=== PATIENT | male | born 1975 | race African-American/Black ===

== ENCOUNTER 2019-08-24 15:36 | Emergency (ER) | payer OTHER ==
[~2019-08-24] VITALS: Ht 180.3 cm; Wt 106.6 kg
[2019-08-24 15:51] VITALS: BP 218/140
[2019-08-24] MEDS ORDERED: IBUPROFEN 800 MG TAB PO ONE (16:00)
[2019-08-24] MEDS ORDERED: SILVER SULFADIAZINE 1 % TOPICAL CREAM 50GM TOP ONE (16:00)
[2019-08-24] MEDS ORDERED: TETANUS-DIPTH-ACEL PERTUSSIS 0.5ML SYRG IM ONE (16:00)
[2019-08-24] MEDS ORDERED: cloNIDine HCL 0.1 MG TAB PO ONE (16:00)
== END 2019-08-24 17:04 | disposition home or self-care (01) ==
LOC: ER 15:36
DX: T22.012A Burn of unspecified degree of left forearm, initial encounter (principal); T23.072A Burn of unspecified degree of left wrist, initial encounter; I10 Essential (primary) hypertension; X11.8XXA Contact with other hot tap-water, initial encounter; Y93.89 Activity, other specified; Y92.89 Other specified places as the place of occurrence of the external cause; Y99.8 Other external cause status
CPT/HCPCS: 16020; 90471; 90715

== ENCOUNTER 2019-09-20 11:21 | Emergency (ER) | payer OTHER ==
[~2019-09-20] VITALS: Ht 177.8 cm; Wt 102.5 kg
[2019-09-20 11:33] VITALS: BP 195/136
[2019-09-20] MEDS ORDERED: cloNIDine HCL 0.1 MG TAB PO ONE (11:45)
== END 2019-09-20 13:44 | disposition home or self-care (01) ==
LOC: ER 11:21
DX: S62.394A Other fracture of fourth metacarpal bone, right hand, initial encounter for closed fracture (principal); S62.396A Other fracture of fifth metacarpal bone, right hand, initial encounter for closed fracture; I10 Essential (primary) hypertension; W18.39XA Other fall on same level, initial encounter; Y93.89 Activity, other specified; Y92.89 Other specified places as the place of occurrence of the external cause; Y99.8 Other external cause status
CPT/HCPCS: 29125; 73130

== ENCOUNTER 2023-06-14 16:54 | Inpatient (IN) | payer OTHER ==
[~2023-06-14] VITALS: Ht 177.8 cm; Wt 95.7 kg
[2023-06-14] MEDS ORDERED: cloNIDine HCL 0.1 MG TAB PO ONE (18:15)
[2023-06-14] MEDS ORDERED: ASPirin 325 MG TAB PO ONE (18:30)
[2023-06-14 18:31] LABS: Basophils # (auto) 0 10 ^3/uL (0-0.2); Basophils % (auto) 0.7 % (0.0-2.0); Eosinophils # (auto) 0.1 10 ^3/uL (0-0.8); Eosinophils % (auto) 2.8 % (0.0-7.0); Hematocrit 43.9 % (41.0-53.0); Hemoglobin 14.6 g/dL (13.5-17.5); Lymphocytes # (auto) 1.6 10 ^3/uL (0.4-5.4); Lymphocytes % (auto) 34.7 % (10.0-50.0); Mean Corpuscular Hemoglobin 27.9 pg (28.0-32.0); Mean Corpuscular Hgb Conc. 33.3 g/dL (32.0-36.0); Mean Corpuscular Volume 83.8 fL (80.0-100.0); Monocytes # (auto) 0.5 10 ^3/uL (0-1.3); Monocytes % (auto) 10.6 % (0.0-12.0); Neutrophils # (auto) 2.4 10 ^3/uL (1.6-8.6); Neutrophils % (auto) 51.2 % (37.0-80.0); Nucleated Red Blood Cells % 0.3 %; Red Blood Cells 5.24 10^6/uL (4.5-5.90); Red Cell Distribution Width 16.7 % (11.8-14.3); White Blood Cell 4.7 10^3/uL (4.4-10.8)
[2023-06-14 19:00] LABS: Alanine Aminotransferase 104 U/L (7-40); Albumin 4.1 g/dL (3.2-4.8); Alkaline Phosphatase 54 U/L (46-116); Anion Gap 5 (5-15); Aspartate Aminotransferase 21 U/L (13-40); BUN/Creatinine Ratio 11.7 (10.0-20.0); Bilirubin, Total 0.7 mg/dL (0.2-1.0); Blood Urea Nitrogen 24 mg/dL (9-23); Calcium 9.2 mg/dL (8.7-10.4); Carbon Dioxide 29 mmol/L (20-30); Chloride 107 mmol/L (98-107); Glucose 103 mg/dL (74-106); Sodium 141 mmol/L (136-145); Total Protein 6.1 g/dL (5.7-8.2)
[2023-06-14 19:50] VITALS: PULSE 106; RESP 36; O2SAT 93
[2023-06-14 20:40] LABS: Urine Bacteria FEW /hpf (None Seen); Urine Blood Negative /uL (Negative); Urine Clarity Clear (Clear); Urine Color Yellow (Yellow); Urine Hyaline Cast FEW /lpf (0 - 2); Urine Mucus FEW (None Seen); Urine Protein, UAD TRACE (Negative); Urine Specific Gravity 1.022 (1.001-1.035); Urine Urobilinogen Normal (Negative); Urine WBC <1 /hpf (0 - 3); Urine pH 5.5 (5.0-8.0)
[2023-06-14] MEDS ORDERED: MORPHINE SULFATE INJ 2 MG/ml SYRG IV PRN (22:00)
[2023-06-14] MEDS ORDERED: FUROSEMIDE 100 MG/10ML VIAL IV ONE (22:00)
[2023-06-14] MEDS ORDERED: NITROGLYCERIN 0.4 MG SL TAB SL PRN (22:00)
[2023-06-14] MEDS ORDERED: ATORVASTATIN 20 MG TAB PO ONE (22:15)
[2023-06-14 22:35] LABS: Amphetamine Screen, Urine Neg (NEGATIVE); Barbiturate Scree,Urine Neg (NEGATIVE); Benzodiazephine Screen, Urine Neg (NEGATIVE); Cannabinoid Screen, Urine Neg (NEGATIVE); Cocaine Screen, Urine Neg (NEGATIVE); Opiate Scree,Urine Neg (NEGATIVE); Phencyclidine Screen, Urine Neg (NEGATIVE)
[2023-06-15] VITALS (8 sets, daily range): BP systolic 138–155; BP diastolic 103–117; PULSE 78–103; RESP 14–20; TEMP 97.5–98.3; O2SAT 92–98
[2023-06-15] MEDS ORDERED: DEXT1SYP9 GT (04:16)
[2023-06-15] MEDS ORDERED: FUROSEMIDE 20 MG/2 ML VIAL IV SCH (06:00)
[2023-06-15] MEDS ORDERED: cloNIDine HCL 0.1 MG TAB PO ONE (06:30)
[2023-06-15 06:41] LABS: INR 1.12 (0.9-1.15); Partial Thromboplastin Time 28.7 SEC (24.5-34.5); Prothrombin Time 11.7 sec (9.3-11.8)
[2023-06-15 06:44] LABS: Alanine Aminotransferase 93 U/L (7-40); Albumin 3.9 g/dL (3.2-4.8); Alkaline Phosphatase 46 U/L (46-116); Anion Gap 3 (5-15); Aspartate Aminotransferase 21 U/L (13-40); BUN/Creatinine Ratio 11.4 (10.0-20.0); Blood Urea Nitrogen 23 mg/dL (9-23); Calcium 9.2 mg/dL (8.7-10.4); Carbon Dioxide 32 mmol/L (20-30); Chloride 106 mmol/L (98-107); Glucose 98 mg/dL (74-106); Potassium 3.8 mmol/L (3.5-5.1); Sodium 141 mmol/L (136-145)
[2023-06-15 06:45] LABS: Bilirubin, Total 1.2 mg/dL (0.2-1.0); Total Protein 5.8 g/dL (5.7-8.2)
[2023-06-15 06:50] LABS: Basophils # (auto) 0 10 ^3/uL (0-0.2); Basophils % (auto) 0.8 % (0.0-2.0); Eosinophils # (auto) 0.2 10 ^3/uL (0-0.8); Eosinophils % (auto) 3.7 % (0.0-7.0); Hematocrit 43.4 % (41.0-53.0); Hemoglobin 14.4 g/dL (13.5-17.5); Lymphocytes # (auto) 1.4 10 ^3/uL (0.4-5.4); Lymphocytes % (auto) 33.1 % (10.0-50.0); Mean Corpuscular Hemoglobin 27.7 pg (28.0-32.0); Mean Corpuscular Hgb Conc. 33.2 g/dL (32.0-36.0); Mean Corpuscular Volume 83.6 fL (80.0-100.0); Monocytes # (auto) 0.5 10 ^3/uL (0-1.3); Monocytes % (auto) 11.2 % (0.0-12.0); Neutrophils # (auto) 2.1 10 ^3/uL (1.6-8.6); Neutrophils % (auto) 51.2 % (37.0-80.0); Nucleated Red Blood Cells % 0.1 %; Red Blood Cells 5.19 10^6/uL (4.5-5.90); Red Cell Distribution Width 16.3 % (11.8-14.3); White Blood Cell 4.2 10^3/uL (4.4-10.8)
[2023-06-15 07:22] LABS: Triglycerides 100 mg/dL (< 150)
[2023-06-15 07:23] LABS: LDL Cholesterol 86 mg/dL (< 100)
[2023-06-15 07:24] LABS: Cholesterol 129 mg/dL (< 200); HDL Cholesterol 33 mg/dL (40-59)
[2023-06-15] MEDS: ASPirin-EC 81 mg tab PO SCH (09:12)
[2023-06-15] MEDS ORDERED: amLODIPine BESYLATE 5 MG TAB PO SCH (10:00)
[2023-06-15] MEDS ORDERED: METOPROLOL TARTRATE 50 MG TAB PO ONE (14:00)
[2023-06-15] MEDS: FUROSEMIDE 40 MG/4 ML VIAL IV SCH ×2 (14:11→17:29)
[2023-06-15] MEDS ORDERED: ISOSORBIDE MONONITRATE ER 60 MG TAB PO ONE (14:15)
[2023-06-15] MEDS: ATORVASTATIN 20 MG TAB PO SCH (21:55)
[2023-06-15] MEDS: hydrALAZINE HCL 25 MG TAB PO SCH (21:55)
[2023-06-15] MEDS: METOPROLOL TARTRATE 50 MG TAB PO SCH (21:57)
[2023-06-15] MEDS: EMPAGLIFLOZIN 10 MG TAB PO SCH (22:02)
[2023-06-16] VITALS (7 sets, daily range): BP systolic 110–151; BP diastolic 75–108; PULSE 82–95; RESP 14–18; TEMP 97.8–99.1; O2SAT 94–97
[2023-06-16] MEDS: EMPAGLIFLOZIN 10 MG TAB PO SCH (06:21)
[2023-06-16] MEDS: FUROSEMIDE 40 MG/4 ML VIAL IV SCH ×2 (06:24→17:56)
[2023-06-16 08:46] LABS: Basophils # (auto) 0 10 ^3/uL (0-0.2); Basophils % (auto) 0.8 % (0.0-2.0); Eosinophils # (auto) 0.2 10 ^3/uL (0-0.8); Eosinophils % (auto) 5.1 % (0.0-7.0); Hematocrit 49.2 % (41.0-53.0); Hemoglobin 16.6 g/dL (13.5-17.5); Lymphocytes % (auto) 21.9 % (10.0-50.0); Mean Corpuscular Hemoglobin 28.2 pg (28.0-32.0); Mean Corpuscular Hgb Conc. 33.6 g/dL (32.0-36.0); Mean Corpuscular Volume 83.8 fL (80.0-100.0); Monocytes # (auto) 0.4 10 ^3/uL (0-1.3); Monocytes % (auto) 9.6 % (0.0-12.0); Neutrophils # (auto) 2.9 10 ^3/uL (1.6-8.6); Neutrophils % (auto) 62.6 % (37.0-80.0); Nucleated Red Blood Cells % 0.1 %; Red Blood Cells 5.87 10^6/uL (4.5-5.90); Red Cell Distribution Width 16.7 % (11.8-14.3); White Blood Cell 4.6 10^3/uL (4.4-10.8)
[2023-06-16 08:53] LABS: Carbon Dioxide 36 mmol/L (20-30)
[2023-06-16 08:54] LABS: Calcium 9.7 mg/dL (8.5-10.1)
[2023-06-16 08:59] LABS: BUN/Creatinine Ratio 9.7 (10.0-20.0); Blood Urea Nitrogen 21 mg/dL (9-23); Glucose 118 mg/dL (74-106)
[2023-06-16 09:00] LABS: Magnesium 1.7 mg/dL (1.6-2.6)
[2023-06-16 09:05] LABS: Anion Gap 6 (5-15); Chloride 98 mmol/L (98-107); Potassium 3.8 mmol/L (3.5-5.1); Sodium 140 mmol/L (136-145)
[2023-06-16] MEDS: METOPROLOL TARTRATE 50 MG TAB PO SCH ×2 (10:30→21:32)
[2023-06-16] MEDS: ISOSORBIDE MONONITRATE ER 60 MG TAB PO SCH (10:31)
[2023-06-16] MEDS: ASPirin-EC 81 mg tab PO SCH (10:31)
[2023-06-16] MEDS: amLODIPine BESYLATE 5 MG TAB PO SCH (10:32)
[2023-06-16] MEDS: hydrALAZINE HCL 25 MG TAB PO SCH ×2 (10:33→21:32)
[2023-06-16] MEDS: ATORVASTATIN 20 MG TAB PO SCH (21:32)
[2023-06-17 05:20] VITALS: BP 105/67; PULSE 84; RESP 16; TEMP 98.3; O2SAT 97
[2023-06-17] MEDS: EMPAGLIFLOZIN 10 MG TAB PO SCH (06:50)
[2023-06-17] MEDS: FUROSEMIDE 40 MG/4 ML VIAL IV SCH (06:50)
[2023-06-17 08:00] VITALS: PULSE 106
[2023-06-17 09:00] VITALS: BP 129/84; PULSE 87; RESP 14; TEMP 97.4; O2SAT 91
[2023-06-17 09:42] LABS: Basophils # (auto) 0 10 ^3/uL (0-0.2); Eosinophils # (auto) 0.2 10 ^3/uL (0-0.8); Hemoglobin 18.1 g/dL (13.5-17.5); Lymphocytes # (auto) 1.3 10 ^3/uL (0.4-5.4); Lymphocytes % (auto) 32.1 % (10.0-50.0); Monocytes # (auto) 0.4 10 ^3/uL (0-1.3); Neutrophils # (auto) 2.1 10 ^3/uL (1.6-8.6)
[2023-06-17 09:44] LABS: Basophils % (auto) 0.7 % (0.0-2.0); Eosinophils % (auto) 4.6 % (0.0-7.0); Hematocrit 53.6 % (41.0-53.0); Mean Corpuscular Hemoglobin 28.1 pg (28.0-32.0); Mean Corpuscular Hgb Conc. 33.8 g/dL (32.0-36.0); Mean Corpuscular Volume 83.3 fL (80.0-100.0); Monocytes % (auto) 10.5 % (0.0-12.0); Neutrophils % (auto) 52.1 % (37.0-80.0); Nucleated Red Blood Cells % 0.9 %; Red Blood Cells 6.43 10^6/uL (4.5-5.90); Red Cell Distribution Width 16.2 % (11.8-14.3)
[2023-06-17 09:59] LABS: Chloride 98 mmol/L (98-107); Potassium 3.7 mmol/L (3.5-5.1); Sodium 138 mmol/L (136-145)
[2023-06-17 10:00] LABS: Anion Gap 4 (5-15); Calcium 9.8 mg/dL (8.7-10.4); Carbon Dioxide 36 mmol/L (20-30)
[2023-06-17] MEDS: hydrALAZINE HCL 25 MG TAB PO SCH ×2 (10:00→22:02)
[2023-06-17 10:05] LABS: BUN/Creatinine Ratio 9.7 (10.0-20.0); Blood Urea Nitrogen 25 mg/dL (9-23); Glucose 144 mg/dL (74-106)
[2023-06-17] MEDS: ASPirin-EC 81 mg tab PO SCH (10:08)
[2023-06-17] MEDS: METOPROLOL TARTRATE 50 MG TAB PO SCH ×2 (10:09→22:04)
[2023-06-17] MEDS: ISOSORBIDE MONONITRATE ER 60 MG TAB PO SCH (10:09)
[2023-06-17] MEDS: amLODIPine BESYLATE 5 MG TAB PO SCH (10:10)
[2023-06-17 13:00] VITALS: BP 112/71; PULSE 73; RESP 18; TEMP 97.7; O2SAT 96
[2023-06-17 17:07] VITALS: BP 106/69; PULSE 87; RESP 18; TEMP 99.1; O2SAT 93
[2023-06-17 20:00] VITALS: PULSE 85
[2023-06-17] MEDS: ATORVASTATIN 20 MG TAB PO SCH (22:04)
[2023-06-18] VITALS (7 sets, daily range): BP systolic 113–144; BP diastolic 68–99; PULSE 77–89; RESP 16–21; TEMP 97.5–98.7; O2SAT 93–96
[2023-06-18 06:21] LABS: Anion Gap 7 (5-15); Carbon Dioxide 33 mmol/L (20-30); Chloride 96 mmol/L (98-107); Sodium 136 mmol/L (136-145)
[2023-06-18 06:22] LABS: Calcium 8.9 mg/dL (8.7-10.4)
[2023-06-18 06:27] LABS: BUN/Creatinine Ratio 11.6 (10.0-20.0); Blood Urea Nitrogen 26 mg/dL (9-23); Glucose 97 mg/dL (74-106)
[2023-06-18 06:43] LABS: Potassium 2.9 mmol/L (3.5-5.1)
[2023-06-18] MEDS: EMPAGLIFLOZIN 10 MG TAB PO SCH (07:02)
[2023-06-18] MEDS ORDERED: FUROSEMIDE 40 MG/4 ML VIAL IV ONE (09:00)
[2023-06-18] MEDS ORDERED: FUROSEMIDE 40 MG TAB PO SCH (10:00)
[2023-06-18] MEDS ORDERED: FUROSEMIDE 20 MG TAB PO SCH (10:00)
[2023-06-18] MEDS ORDERED: POTASSIUM CHL 20 Meq TABLET PO ONE (10:15)
[2023-06-18] MEDS: hydrALAZINE HCL 25 MG TAB PO SCH ×2 (11:19→22:10)
[2023-06-18] MEDS: ASPirin-EC 81 mg tab PO SCH (11:19)
[2023-06-18] MEDS: METOPROLOL TARTRATE 50 MG TAB PO SCH ×2 (11:20→22:10)
[2023-06-18] MEDS: ISOSORBIDE MONONITRATE ER 60 MG TAB PO SCH (11:20)
[2023-06-18] MEDS: amLODIPine BESYLATE 5 MG TAB PO SCH (11:21)
[2023-06-18] MEDS: FUROSEMIDE 40 MG/4 ML VIAL IV SCH (17:54)
[2023-06-18] MEDS: ATORVASTATIN 20 MG TAB PO SCH (22:09)
[2023-06-19 05:00] VITALS: BP 127/89; PULSE 83; RESP 21; TEMP 97.5; O2SAT 98
[2023-06-19 05:55] LABS: Anion Gap 5 (5-15); Carbon Dioxide 33 mmol/L (20-30); Chloride 99 mmol/L (98-107); Potassium 3.8 mmol/L (3.5-5.1); Sodium 137 mmol/L (136-145)
[2023-06-19 05:56] LABS: Calcium 8.9 mg/dL (8.7-10.4)
[2023-06-19 06:01] LABS: BUN/Creatinine Ratio 10.5 (10.0-20.0); Blood Urea Nitrogen 24 mg/dL (9-23); Glucose 100 mg/dL (74-106)
[2023-06-19] MEDS: EMPAGLIFLOZIN 10 MG TAB PO SCH (06:42)
[2023-06-19] MEDS: FUROSEMIDE 40 MG/4 ML VIAL IV SCH (06:43)
[2023-06-19 08:00] VITALS: BP 140/91; PULSE 81; PULSE 83; RESP 24; TEMP 97.9; O2SAT 94
[2023-06-19 09:00] VITALS: BP 140/91; PULSE 81; RESP 24; TEMP 97.9; O2SAT 94
[2023-06-19] MEDS: ASPirin-EC 81 mg tab PO SCH (09:16)
[2023-06-19] MEDS: ISOSORBIDE MONONITRATE ER 60 MG TAB PO SCH (09:17)
[2023-06-19] MEDS: amLODIPine BESYLATE 5 MG TAB PO SCH (09:17)
[2023-06-19] MEDS: METOPROLOL TARTRATE 50 MG TAB PO SCH (09:18)
[2023-06-19] MEDS: hydrALAZINE HCL 25 MG TAB PO SCH (09:18)
[2023-06-19 11:17] VITALS: BP 140/91; PULSE 81; RESP 24; TEMP 97.9; O2SAT 94
[2023-06-19] MEDS ORDERED: HYDR-4297 PO (13:21)
[2023-06-19] MEDS ORDERED: METO-158 PO (13:21)
[2023-06-19] MEDS ORDERED: EMPA1TAB PO (13:21)
[2023-06-19] MEDS ORDERED: FURO1TAB31 PO (13:21)
[2023-06-19] MEDS ORDERED: ISOS1TAB28 PO (13:21)
[2023-06-19] MEDS ORDERED: ASPI-463 PO (13:21)
[2023-06-19] MEDS ORDERED: FUROSEMIDE 20 MG TAB PO SCH (18:00)
== END 2023-06-19 12:30 | disposition home or self-care (01) | DRG 133 ==
LOC: ER 16:54 → TELE 21:57 → TELE-WESTW 06-15 03:34
PROVIDERS: ADMIT Nurse Practitioner Family; ATTEND Family Medicine
DX: J96.01 Acute respiratory failure with hypoxia (principal); I21.A1 Myocardial infarction type 2; I50.33 Acute on chronic diastolic (congestive) heart failure; N17.9 Acute kidney failure, unspecified; I42.8 Other cardiomyopathies; I13.0 Hypertensive heart and chronic kidney disease with heart failure and stage 1 through stage 4 chronic kidney disease, or unspecified chronic kidney disease; I16.1 Hypertensive emergency; I25.10 Atherosclerotic heart disease of native coronary artery without angina pectoris; E66.9 Obesity, unspecified; Z68.30 Body mass index [BMI] 30.0-30.9, adult; I34.0 Nonrheumatic mitral (valve) insufficiency; N18.9 Chronic kidney disease, unspecified; Z71.3 Dietary counseling and surveillance
CPT/HCPCS: 36415; 71045; 80048; 80053; 80061; 80307; 81001; 83036; 83735; 83880; 84443; 84484; 85025; 85379; 85610; 85730; 93005; 93306; 93975; G0378

== ENCOUNTER 2024-11-30 12:08 | Inpatient (IN) | payer MEDICAID, OTHER ==
[~2024-11-30] VITALS: Ht 177.8 cm; Wt 89.9 kg
[~2024-11-30 12:08] MED LIST: ASPI-463 PO; DEXT1SYP9 GT; EMPA1TAB PO; FURO1TAB31 PO; HYDR50TA47 PO; ISOS1TAB28 PO; METO-158 PO
--- NOTE | 2024-11-30 12:42 | ED.PDOC ---
SOB-HPI HPI Comments 49y M who presents to the ED for chief complaint of shortness of breath. Pt states he has been having shortness of breath with the past 3 weeks. Pt states his shortness of breath has been getting progressively worse since and he came to the ED for further evaluation. Pt states he has history of hypertension, CHF and DM but states he has not taken any of his medications for the past 3 weeks due to having pain and not feeling well after taking his medications so he stopped taking his Meds. Pt in the ED, has noted BP of 188/134. Pt otherwise denies chest pain, diaphoresis, palpitations, fever, cough, chills, or any associated symptoms. Pt otherwise denies any other symptoms at this time. Time Seen by MD: 12:36 Primary Care Provider: SARAH Mayer notes: Nurses Notes, Medications, Allergies (NKDA) Information Source: Patient Mode of Arrival: Ambulatory Brought in by: self Severity: Moderate Timing: Weeks Duration: Since onset Context: At Rest, With Light Exertion PE Risk Factors: None History of: CHF Prehospital treatment: None Modifying Factors: Exertion Associated Signs and Symptoms: None Past Medical History PAST MEDICAL HISTORY: CHF, DM, HTN Surgical History: Denies all surgeries Family History Family History: Reviewed,noncontributory to illness Social History Smoker: Non-Smoker Alcohol: Occasionally Drugs: Denies Drug Use Lives In: Home Constitutional: denies: chills, diaphoresis, fatigue, fever, malaise, sweats, weakness, others EENTM: denies: blurred vision, double vision, ear bleeding, ear discharge, ear drainage, ear pain, ear ringing, eye pain, eye redness, hearing loss, mouth pain, mouth swelling, nasal discharge, nose bleeding, nose congestion, nose pain, photophobia, tearing, throat pain, throat swelling, voice changes, others Respiratory: reports: shortness of breath; denies: cough, hemoptysis, orthopnea, SOB at rest, SOB with excertion, stridor, wheezing, others Cardiovascular: denies: chest pain, dizzy spells, diaphoresis, Dyspnea on exertion, edema, irregular heart beat, left arm pain, lightheadedness, palpitations, PND, syncope, others Gastrointestinal: denies: abdomen distended, abdominal pain, blood streaked bowels, constipated, diarrhea, dysphagia, difficulty swallowing, hematemesis, melena, nausea, poor appetite, poor fluid intake, rectal bleeding, rectal pain, vomiting, others Genitourinary: denies: burning, dysuria, flank pain, frequency, hematuria, incontinence, penile discharge, penile sore, pain, testicle pain, testicle swelling, urgency, others Neurological: denies: dizziness, fainting, headache, left sided numbness, left sided weakness, numbness, paresthesia, pre-existing deficit, right sided numbness, right sided weakness, seizure, speech problems, tingling, tremors, weakness, others Musculoskeletal: denies: back pain, gout, joint pain, joint swelling, muscle pain, muscle stiffness, neck pain, others Integumetry: denies: bruises, change in color, change in hair/nails, dryness, laceration, lesions, lumps, rash, wounds, others Allergic/Immunocompromised: denies: Difficulty Healing, Frequent Infections, Hives, Itching, others Hematologic/Lymphatic: denies: anemia, blood clots, easy bleeding, easy bruising, swollen glands, others Endocrine: denies: excessive hunger, excessive sweating, excessive thirst, excessive urination, flushing, intolerance to cold, intolerance to heat, unexplained weight gain, unexplained weight loss, others Psychiatric: denies: anxiety, bipolar disorder, depression, hopeless, panic disorder, schizophrenia, sleepless, suicidal, others All Other Systems: Reviewed and Negative Physical Exam General Appearance: No Apparent Distress HEENT: Normal ENT Inspection, Pharynx Normal, TMs Normal Neck: Full Range of Motion, Non-Tender, Normal, Normal Inspection Respiratory: Chest Non-Tender, Lungs Clear, No Accessory Muscle Use, No Respiratory Distress, Normal Breath Sounds Cardiovascular: No Edema, No JVD, No Murmur, No Gallop, Normal Peripheral Pulses, Regular Rate/Rhythm Breast Exam: Deferred Gastrointestinal: No Organomegaly, Non Tender, No Pulsatile Mass, Normal Bowel Sounds, Soft Genitalia: Deferred Pelvic: Deferred Rectal: Deferred Extremities: No calf tenderness, Normal capillary refill, Normal inspection, Normal range of motion, Non-tender, No pedal edema Musculoskeletal : Apperance: Normal 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 Was a procedure done?: No Differential Dx Differential Diagnosis: CHF, COPD, Hypertension, Myocardial infarction, Pneumonia, Pulmonary Embolism, Respiratory Distress, Pharyngitis, URI X-Ray, Labs, Meds, VS Vital Signs Date Time Temp Pulse Resp B/P (MAP) Pulse Ox O2 Delivery O2 Flow Rate FiO2 11/30/24 15:48 140/102 11/30/24 14:46 180/133 11/30/24 14:40 69 16 180/133 (149) 93 11/30/24 14:40 69 16 93 Room Air 11/30/24 12:42 104 11/30/24 12:36 98.0 65 19 173/123 (140) 95 11/30/24 12:33 104 Lab Test 11/30/24 15:52 11/30/24 14:02 11/30/24 13:04 Range/Units Troponin I High Sensitivity 106 *H 112 *H 112 *H </=54 ng/L White Blood Count 4.8 4.4-10.8 10^3/uL Red Blood Count 5.98 H 4.5-5.90 10^6/uL Hemoglobin 16.7 13.5-17.5 g/dL Hematocrit 50.5 41.0-53.0 % Mean Corpuscular Volume 84.5 80.0-100.0 fL Mean Corpuscular Hemoglobin 28.0 28.0-32.0 pg Mean Corpuscular Hemoglobin Concent 33.1 32.0-36.0 g/dL Red Cell Distribution Width 16.2 H 11.8-14.3 % Platelet Count 222 140-450 10^3/uL Mean Platelet Volume 9.0 6.9-10.8 fL Neutrophils (%) (Auto) 50.4 37.0-80.0 % Lymphocytes (%) (Auto) 36.0 10.0-50.0 % Monocytes (%) (Auto) 10.8 0.0-12.0 % Eosinophils (%) (Auto) 2.2 0.0-7.0 % Basophils (%) (Auto) 0.6 0.0-2.0 % Neutrophils # (Auto) 2.4 1.6-8.6 10 ^3/uL Lymphocytes # (Auto) 1.7 0.4-5.4 10 ^3/uL Monocytes # (Auto) 0.5 0-1.3 10 ^3/uL Eosinophils # (Auto) 0.1 0-0.8 10 ^3/uL Basophils # (Auto) 0 0-0.2 10 ^3/uL Nucleated Red Blood Cells 0.3 % Sodium Level 146 H 136-145 mmol/L Potassium Level 4.6 3.5-5.1 mmol/L Chloride Level 110 H 98-107 mmol/L Carbon Dioxide Level 28 20-31 mmol/L Anion Gap 8 5-15 Blood Urea Nitrogen 37 H 9-23 mg/dL Creatinine 2.36 H 0.700-1.30 mg/dL Glomerular Filtration Rate Calc 33 >90 mL/min BUN/Creatinine Ratio 15.7 10.0-20.0 Serum Glucose 132 H 74-106 mg/dL Calcium Level 10.5 H 8.7-10.4 mg/dL B-Type Natriuretic Peptide 2859.79 0-100 pg/mL Current Medications Medications (Trade) Dose Ordered Sig/Jinny Route Start Time Stop Time Status Last Admin Clonidine HCl (Catapres Tablet) 0.2 mg ONCE ONCE PO 11/30/24 12:30 11/30/24 12:31 DC 11/30/24 14:46 XY CHEST TWO VIEWS ROUTINE IMPRESSION: No acute cardiopulmonary disease. The patient's CBC is within normal limits The chemistry panel shows a BUN of 37 and a creatinine of 2.36 The BNP is elevated at 2859 At this time, the patient was troponin level went from 112 down to 106 The patient was being admitted to the hospitalist The patient was given Lasix 40 mg IV push The patient was also given Lovenox for the elevated troponin The patient was given clonidine 0.2 mg by mouth A cardiology consult will be obtained. Images Reviewed?: Images reviewed and evaluated by me Time of 1ST Reevaluation: 13:10 Reevaluation 1ST: Unchanged Time of 2ND Reevaluation: 16:49 Reevaluation 2ND: Unchanged Patient Education/Counseling: Diagnosis, Treatment, Prognosis Family Education/Counseling: No Family Present Additional Information -Reviewed patient's previous visit(s): - The following tests were ordered, and results were reviewed by me: cbc, bmp, chest x-ray, ua, trop x 3, ekg x 3, bmp, - Additional information was gathered from interviewing the following independent Historian: pt - I reviewed and agreed with the following test results read by other provider: radiologist - I discussed treatments and results with medical personnel and: patient Comprehensive systems review obtained and negative except for what is stated in the HPI. Departure 1 Departure Time of Disposition: 16:49 Impression: Primary Impression: Elevated troponin Additional Impressions: Accelerated hypertension Acute on chronic diastolic heart failure Disposition: ADMITTED INPATIENT Admit to: Tele Condition: Fair Critical Care Note Critical Care Time?: Yes (45 min-critical care time only) Stability Stability form required: Yes Unstable for transfer: Telemetry monitoring (Telemetry monitoring required), ED Physician Assesment (Clinical assesment) Heart Score Heart Score: Heart Score Response (Comments) Value History Slightly Suspicious 0 EKG Repolarization Disturb 1 Age 45-64 1 Risk Factors 1 or 2 risk factors 1 Troponin >3 x's Normal limit 2 Total 5 I personally scribed for MARYCARMEN WHITESIDE MD ([email or web address]) on 11/30/24 at 12:42. Electronically submitted by Dave Ross ([email or web address]). I personally scribed for MARYCARMEN WHITESIDE MD ([email or web address]) on 11/30/24 at 13:51. Electronically submitted by Dave Ross ([email or web address]). MARYCARMEN WHITESIDE MD Nov 30, 2024 12:42
--- NOTE | 2024-11-30 13:09 | DVH ---
XY CHEST TWO VIEWS ROUTINE CLINICAL HISTORY: sob COMPARISON: None TECHNIQUE: Frontal and lateral view of the chest was obtained FINDINGS: Lines and Tubes: None Lungs: No focal consolidation. Pleura: No effusion. No pneumothorax. Cardiomediastinal contours: Cardiomegaly. Bones: No acute osseous abnormality. IMPRESSION: No acute cardiopulmonary disease.
[2024-11-30 13:33] LABS: Basophils # (auto) 0 10 ^3/uL (0-0.2); Basophils % (auto) 0.6 % (0.0-2.0); Eosinophils # (auto) 0.1 10 ^3/uL (0-0.8); Eosinophils % (auto) 2.2 % (0.0-7.0); Hematocrit 50.5 % (41.0-53.0); Hemoglobin 16.7 g/dL (13.5-17.5); Lymphocytes # (auto) 1.7 10 ^3/uL (0.4-5.4); Mean Corpuscular Hgb Conc. 33.1 g/dL (32.0-36.0); Mean Corpuscular Volume 84.5 fL (80.0-100.0); Monocytes # (auto) 0.5 10 ^3/uL (0-1.3); Monocytes % (auto) 10.8 % (0.0-12.0); Neutrophils # (auto) 2.4 10 ^3/uL (1.6-8.6); Neutrophils % (auto) 50.4 % (37.0-80.0); Nucleated Red Blood Cells % 0.3 %; Platelet Count (auto) 222 10^3/uL (140-450); Red Blood Cells 5.98 10^6/uL (4.5-5.90); Red Cell Distribution Width 16.2 % (11.8-14.3); White Blood Cell 4.8 10^3/uL (4.4-10.8)
[2024-11-30 13:45] LABS: Potassium 4.6 mmol/L (3.5-5.1)
[2024-11-30 13:46] LABS: Anion Gap 8 (5-15); Carbon Dioxide 28 mmol/L (20-31)
[2024-11-30 13:51] LABS: BUN/Creatinine Ratio 15.7 (10.0-20.0)
[2024-11-30 13:59] LABS: Blood Urea Nitrogen 37 mg/dL (9-23); Calcium 10.5 mg/dL (8.7-10.4); Chloride 110 mmol/L (98-107); Glucose 132 mg/dL (74-106); Sodium 146 mmol/L (136-145)
[2024-11-30] MEDS: cloNIDine HCL 0.1 MG TAB PO ONE (14:46)
[2024-11-30] MEDS: FUROSEMIDE 40 MG/4 ML VIAL IV ONE (17:11)
[2024-11-30] MEDS: ENOXAPARIN SOD 100 MG/1 ML SYRINGE SC ONE (17:11)
[2024-11-30 17:40] VITALS: PULSE 80; RESP 18; O2SAT 95
--- NOTE | 2024-11-30 17:47 | DVHINCON2 ---
Date Seen: Nov 30, 2024 Referring Physician MD Myra Reason for Consultation CHF, NSTEMI History of Present Illness This is a 49-year-old male patient who presents to emergency room with chief complaints of worsening shortness of breath for four weeks. The patient has a known history of congestive heart failure. Cardiology is now being consulted at this time for CHF exacerbation as well as elevated troponin level. Initial twelve lead electrocardiogram reveals sinus tachycardia with ST segment depression to lateral leads and PVCs. Initial troponin level of 112ng/L with flat trend thereafter. Significant past medical history includes congestive heart failure and hypertension. The patient was seen at this facility in May of 2023 in which he was diagnosed with congestive heart failure with an EF as low as 20%. At that time, the patient was not able to undergo ischemic workup given that his renal function was poor. Somehow, the patient never followed up with Cardiology in the outpatient setting. He also admits that he has not been taking his medications for approximately three weeks because he felt that the medications were making his symptoms worse. Past Medical History Past medical history reviewed. No other significant than mentioned above. Past Surgical History Denies Family History: Patient reports no known family medical history. Family History Family history reviewed. Social History Denies the use of tobacco, alcohol or illicit drugs. Allergies: Coded Allergies: NO KNOWN ALLERGIES (Unverified , 08/24/19) Home Meds Active Scripts Furosemide (Lasix) 40 Mg Tab, 40 MG PO DAILY, #90 TAB Prov:DERIC FOSTER MD 06/19/23 Empagliflozin (Jardiance) 10 Mg Tab, 10 MG PO DAILY, #90 TAB Prov:DERIC FOSTER MD 06/19/23 Hydralazine Hcl (Hydralazine Hcl) 50 Mg Tab, 50 MG PO DAILY, #90 TAB Prov:DERIC FOSTER MD 06/19/23 Isosorbide Mononitrate (Isosorbide Mononitrate Er) 30 Mg Tab, 30 MG PO DAILY, #90 TAB Prov:DREIC FOSTER MD 06/19/23 Metoprolol Tartrate (Metoprolol Tartrate) 50 Mg Tab, 50 MG PO BID, #180 TAB Prov:DERIC FOSTER MD 06/19/23 Aspirin (ASPIRIN/ENTERIC) 81 Mg Tab, 81 MG PO DAILY, #90 TAB Prov:DERIC FOSTER MD 06/19/23 Reported Medications Dextromethorphan-Guaifenesin (Robitussin-Dm) 10 Ml Sr, 10 ML GT, SYP 06/15/23 Home Meds Home medications reviewed. Review of Systems Constitutional: No symptom reported Ears, Nose, & Throat: No symptom reported Eyes: No symptom reported Neurological: No symptoms reported Pulmonary/Respiratory: Shortness of breath Cardiovascular: No symptom reported Gastrointestinal: No symptom reported Genitourinary: No symptom reported Musculoskeletal: No symptom reported Skin: No symptom reported Psychiatric: No symptom reported Endocrine: No symptom reported Hematologic/Lymphatic: No symptom reported Vital Signs Vital Signs Date Time Temp Pulse Resp B/P (MAP) Pulse Ox O2 Delivery O2 Flow Rate FiO2 11/30/24 17:11 171/127 11/30/24 14:40 69 16 93 11/30/24 14:40 Room Air 11/30/24 12:36 98.0 Physical Exam General Appearance: Cooperative. Well-developed. Well-nourished. No acute distress. Pulmonary/Respiratory: Clear, bilateral breaths sounds. Cardiovascular/Chest: Regular rate and rhythm. Peripheral Pulses: 2+ Radial (R). 2+ Radial (L). 2+ Pedal (R). 2+ Pedal (L) Abdominal Exam: Normal bowel sounds. Ankle Exam: Negative ankle edema Lower extremities: Negative lower extremity edema Neuro/Mental Status: A/OX4, coherent. Thoughts/Psych: Normal thought pattern. Appropriate mood and affect. Good judgment and insight. Appearance: No acute distress. Skin Exam: Normal inspection. Normal color. Warm and dry. Labs/Diagnostic Data Labs Test 11/30/24 15:52 11/30/24 13:04 Range/Units D-Dimer, Quantitative < 0.19 0.0-0.49 mg/L FEU Troponin I High Sensitivity 106 *H </=54 ng/L White Blood Count 4.8 4.4-10.8 10^3/uL Red Blood Count 5.98 H 4.5-5.90 10^6/uL Hemoglobin 16.7 13.5-17.5 g/dL Hematocrit 50.5 41.0-53.0 % Mean Corpuscular Volume 84.5 80.0-100.0 fL Mean Corpuscular Hemoglobin 28.0 28.0-32.0 pg Mean Corpuscular Hemoglobin Concent 33.1 32.0-36.0 g/dL Red Cell Distribution Width 16.2 H 11.8-14.3 % Platelet Count 222 140-450 10^3/uL Mean Platelet Volume 9.0 6.9-10.8 fL Neutrophils (%) (Auto) 50.4 37.0-80.0 % Lymphocytes (%) (Auto) 36.0 10.0-50.0 % Monocytes (%) (Auto) 10.8 0.0-12.0 % Eosinophils (%) (Auto) 2.2 0.0-7.0 % Basophils (%) (Auto) 0.6 0.0-2.0 % Neutrophils # (Auto) 2.4 1.6-8.6 10 ^3/uL Lymphocytes # (Auto) 1.7 0.4-5.4 10 ^3/uL Monocytes # (Auto) 0.5 0-1.3 10 ^3/uL Eosinophils # (Auto) 0.1 0-0.8 10 ^3/uL Basophils # (Auto) 0 0-0.2 10 ^3/uL Nucleated Red Blood Cells 0.3 % Sodium Level 146 H 136-145 mmol/L Potassium Level 4.6 3.5-5.1 mmol/L Chloride Level 110 H 98-107 mmol/L Carbon Dioxide Level 28 20-31 mmol/L Anion Gap 8 5-15 Blood Urea Nitrogen 37 H 9-23 mg/dL Creatinine 2.36 H 0.700-1.30 mg/dL Glomerular Filtration Rate Calc 33 >90 mL/min BUN/Creatinine Ratio 15.7 10.0-20.0 Serum Glucose 132 H 74-106 mg/dL Calcium Level 10.5 H 8.7-10.4 mg/dL B-Type Natriuretic Peptide 2859.79 0-100 pg/mL Assessment Acute on chronic decompensated HFrEF, NYHA class III Hypertensive urgency NSTEMI Severe torrential mitral regurgitation STANISLAV vs CKD Medical noncompliance Plan/Recommendation We will continue with the following plan/recommendations (Dr. Reese): * Transthoracic echocardiogram to evaluate cardiac function * Previous echocardiogram from 06/15/2023 reveals EF of 20% * Initiate guideline directed medical therapy for CHF as renal function permits * Strict intake and output, daily weights, maintain fluid restriction * Aggressive BP control-avoid nephrotoxic agents * Aggressive diuresis as tolerated * Close Cardiac surveillance Case discussed with . Thank you for allowing us to care for this patient. Please call with any questions or concerns. Critical care time spent: 42 minutes This medical document was created using an electronic medical record system with voice recognition software and computerized dictation system. Although this document has been carefully reviewed, there might still be some phonetic and typographical errors. Occasional wrong-word or ``sound-alike substitutions may have occurred due to the inherent limitations of voice recognition software. These areas are purely typographical due to imperfections of the software programs and do not reflect any compromise in the patient's medical care. Please read the chart carefully and recognize, using context, where these substitutions have occurred. Plan discussed with: Patient, Spouse NYHA Physical activity limitations: Class3(Marked) ordinary (activity causes symtoms) Date of Service: Nov 30, 2024 Billing Provider: DMITRIY DEL TORO Cardiology Common Codes: 00583-TMHMLBE INP/OBS CARE (High) Cardiology Consultation Codes: 91720-[id number] CONSULT <45MIN DMITRIY DEL TORO Nov 30, 2024 17:47
[2024-11-30] MEDS: ISOSORBIDE MONONITRATE ER 60 MG TAB PO ONE (17:54)
[2024-11-30 20:29] VITALS: PULSE 99; RESP 19; O2SAT 97
[2024-11-30] MEDS ORDERED: NITROGLYCERIN 0.4 MG SL TAB SL PRN (21:30)
[2024-11-30] MEDS ORDERED: ACETAMINOPHEN 325 MG TAB PO PRN (21:30)
[2024-11-30] MEDS ORDERED: MORPHINE SULFATE INJ 2 MG/ml SYRG IV PRN (21:30)
[2024-11-30] MEDS: hydrALAZINE HCL 25 MG TAB PO SCH (22:15)
--- NOTE | 2024-12-01 00:13 | DVHHPRES ---
History of Present Illness Resident Creating Document: ESSENCE HICKS RESIDENT Reason for Visit: SOB History of Present Illness 49-year-old male with a history of hypertension, congestive heart failure (CHF), and diabetes mellitus (DM) presents to the ED with progressive shortness of breath over the past 4 weeks. He reports worsening dyspnea at rest and with exertion, which prompted him to seek medical attention. He also endorses o rthopnea, paroxysmal nocturnal dyspnea (PND), and intermittent lightheadedness but denies chest pain, diaphoresis, fever, chills, or palpitations. Patient admits to non-adherence with his CHF medications for the past three weeks due to feeling unwell after taking them. He was last evaluated in May 2023, when he was diagnosed with CHF with an ejection fraction (EF) of 20%. Workup at that time revealed ST depressions on ECG, but ischemic evaluation was deferred due to poor renal function. He has not followed up with Cardiology since then. In the ED, his blood pressure was noted to be 188/134 mmHg. Troponin levels were elevated at 112 ng/L with a downward trend. ECG showed sinus tachycardia with ST segment depressions in the lateral leads and premature ventricular contractions. Past Medical History: CHF with EF of 20% Hypertension Diabetes Mellitus Type 2 Social History: Denies tobacco, alcohol, or illicit drug use. Lives alone. Medications: Furosemide 40 mg PO daily Empagliflozin 10 mg PO daily Hydralazine 50 mg PO TID Isosorbide mononitrate 30 mg PO daily Metoprolol tartrate 50 mg PO BID Review of Systems Review of Systems Constitutional: Denies fever, chills, unintentional weight loss. HEENT: Denies visual changes, hearing loss, or sore throat. Cardiovascular: Reports worsening shortness of breath, orthopnea, PND, and lightheadedness. Denies chest pain or palpitations. Respiratory: Reports dyspnea at rest and with exertion. Denies wheezing or productive cough. GI: Denies nausea, vomiting, diarrhea, or abdominal pain. : Denies dysuria or hematuria. Musculoskeletal: Denies joint pain or swelling. Neuro: Denies focal deficits, seizures, or altered mental status. Psych: No recent mood changes. Allergies: Coded Allergies: NO KNOWN ALLERGIES (Unverified , 08/24/19) Medications Current Medications Medications Dose Ordered Sig/Jinny Route Start Time Stop Time Status Last Admin Dose Admin Furosemide 40 mg BIDD IV 3/7/25 06:00 Isosorbide Mononitrate 30 mg DAILY PO 12/01/24 10:00 Hydralazine HCl 25 mg Q12HR PO 11/30/24 22:00 11/30/24 22:15 25 MG Acetaminophen 650 mg Q6HP PRN PO 11/30/24 21:30 Enoxaparin Sodium 40 mg DAILY SC 12/01/24 10:00 Cancel Nitroglycerin 0.4 mg Q5MINP PRN SL 11/30/24 21:30 Morphine Sulfate 2 mg Q30M PRN IV 11/30/24 21:30 Heparin Sodium (Porcine) 5,000 units Q12HR SC 12/01/24 10:00 Exam Vital Signs Vital Signs Date Time Temp Pulse Resp B/P (MAP) Pulse Ox O2 Delivery O2 Flow Rate FiO2 11/30/24 22:15 155/115 11/30/24 22:00 101 28 96 11/30/24 20:29 Room Air* 0 21 11/30/24 19:50 97.9 97.9 Exam General: No acute distress. Appears fatigued. HEENT: Normocephalic, atraumatic. No oropharyngeal edema. CV: Tachycardic. No murmurs, rubs, or gallops. No JVD. Pulmonary: Diminished breath sounds bilaterally. No wheezing or rales. Abdomen: Soft, non-tender, non-distended. Extremities: No peripheral edema. Neuro: Alert and oriented x3. No focal deficits. Labs/Xrays Labs Test 11/30/24 15:52 11/30/24 13:04 Range/Units D-Dimer, Quantitative < 0.19 0.0-0.49 mg/L FEU Troponin I High Sensitivity 106 *H </=54 ng/L White Blood Count 4.8 4.4-10.8 10^3/uL Red Blood Count 5.98 H 4.5-5.90 10^6/uL Hemoglobin 16.7 13.5-17.5 g/dL Hematocrit 50.5 41.0-53.0 % Mean Corpuscular Volume 84.5 80.0-100.0 fL Mean Corpuscular Hemoglobin 28.0 28.0-32.0 pg Mean Corpuscular Hemoglobin Concent 33.1 32.0-36.0 g/dL Red Cell Distribution Width 16.2 H 11.8-14.3 % Platelet Count 222 140-450 10^3/uL Mean Platelet Volume 9.0 6.9-10.8 fL Neutrophils (%) (Auto) 50.4 37.0-80.0 % Lymphocytes (%) (Auto) 36.0 10.0-50.0 % Monocytes (%) (Auto) 10.8 0.0-12.0 % Eosinophils (%) (Auto) 2.2 0.0-7.0 % Basophils (%) (Auto) 0.6 0.0-2.0 % Neutrophils # (Auto) 2.4 1.6-8.6 10 ^3/uL Lymphocytes # (Auto) 1.7 0.4-5.4 10 ^3/uL Monocytes # (Auto) 0.5 0-1.3 10 ^3/uL Eosinophils # (Auto) 0.1 0-0.8 10 ^3/uL Basophils # (Auto) 0 0-0.2 10 ^3/uL Nucleated Red Blood Cells 0.3 % Sodium Level 146 H 136-145 mmol/L Potassium Level 4.6 3.5-5.1 mmol/L Chloride Level 110 H 98-107 mmol/L Carbon Dioxide Level 28 20-31 mmol/L Anion Gap 8 5-15 Blood Urea Nitrogen 37 H 9-23 mg/dL Creatinine 2.36 H 0.700-1.30 mg/dL Glomerular Filtration Rate Calc 33 >90 mL/min BUN/Creatinine Ratio 15.7 10.0-20.0 Serum Glucose 132 H 74-106 mg/dL Hemoglobin A1c 5.9 H <5.7 % A1C Calcium Level 10.5 H 8.7-10.4 mg/dL B-Type Natriuretic Peptide 2859.79 0-100 pg/mL Assessment/Plan Assessment/Plan work up ECG: Sinus tachycardia with ST segment depressions in lateral leads, PVCs. Troponin I 112 112 106 (down-trending) BNP: 2443 pg/mL Creatinine: 2.36 mg/dL (baseline ~2.0-2.2 mg/dL) GFR: 33 mL/min/1.73m Echocardiogram: EF 20% Grade II diastolic dysfunction Severe mitral regurgitation Severe RV dysfunction Severely dilated left atrium Assessment & Plan: 49M with a history of CHF (EF 20%), HTN, and DM presenting with worsening SOB. Findings concerning for acute decompensated heart failure with hypertensive emergency and NSTEMI. #Acute Decompensated Heart Failure (HFrEF, EF 20%) #Severe Mitral Regurgitation Continue Hydralazine and nitrates Furosemide IV Hold on BB due to acute CHF Avoid excess fluids, strict I/Os Start low-salt diet Monitor renal function closely #Hypertensive Urgency Blood pressure control with isosorbide mononitrate and hydralazine Avoid excessive hypotension to prevent worsening STANISLAV #NSTEMI (Type 2 VT secondary to demand ischemia) #Acute Kidney Injury on possible CKD #Possible Cardiorenal Syndrome Likely secondary to CHF exacerbation and autoregulation failure Hold nephrotoxic medications Monitor renal function closely #Diabetes Mellitus Type 2? hb 5.[address] Valentin Plan discussed with: Patient, Other (rn) My Orders Orders - ESSENCE HICKS Procedure Category Date Status Time Admit ADMIT 11/30/24 Transmitted 21:20 Code Status CODE 11/30/24 Transmitted 21:20 Vital Signs [facility] 11/30/24 In Process 21:20 Review Orders With [facility] [place] 11/30/24 In Process Adm. 21:20 Oxygen By Face Mask RT 11/30/24 Transmitted 21:20 Acetaminophen Tablet PHA 11/30/24 In Process (Tylenol Tablet) 21:30 Notify Of Changes [facility] 11/30/24 In Process From Base 21:20 Advance Directive [facility] 11/30/24 In Process 21:20 Urinalysis LAB 11/30/24 Logged 21:20 Patient Condition ORDERS 11/30/24 Transmitted 21:20 Allergies [facility] 11/30/24 In Process 21:20 Drug Screen LAB 11/30/24 Logged 21:20 Nitroglycerin PHA 11/30/24 In Process Sublingual (Ntrostat 21:30 Morphine Sulfate PHA 11/30/24 In Process Injection 21:30 Oxygen By Nasal RT 11/30/24 Transmitted Cannula 21:20 Stat Ekg For Chest [facility] 11/30/24 In Process Pain 21:20 Notify Of Changes [facility] [place] 11/30/24 In Process From Base 21:20 Vault Attendant For [facility] 11/30/24 In Process 24 Hours 21:20 Emergency Dysrhythmia [facility] 11/30/24 In Process Protocol 21:20 Rhythm Strips Once [facility] 11/30/24 In Process Every Shift 21:20 *[facility] CONS 11/30/24 Transmitted -[place] 21:22 Pharmacy [facility] 11/30/24 In Process Clarification: 21:43 Heparin Sodium PHA 12/01/24 In Process (Porcine) 10:00 Date of Service: Nov 30, 2024 Billing Provider: LIANE VALENTIN MD Common Visit Codes: [id number] INP/OBS CARE (HIGH) ESSENCE HICKS RESIDENT Dec 01, 2024 00:12 LIANE VALENTIN MD Dec 01, 2024 19:46
[2024-12-01 02:11] LABS: Urine Bacteria None Seen /hpf (None Seen)
[2024-12-01 02:15] LABS: Urine Blood Negative /uL (Negative); Urine Clarity Clear (Clear); Urine Color STRAW (Yellow); Urine Protein, UAD Negative (Negative); Urine Specific Gravity 1.006 (1.001-1.035); Urine Squamous Epithelial Cell None Seen /hpf (<5); Urine Urobilinogen Normal (Negative); Urine WBC 1 /HPF (0-3); Urine pH 6.5 (5.0-9.0)
[2024-12-01 04:06] LABS: Amphetamine Screen, Urine Neg (NEGATIVE); Barbiturate Scree,Urine Neg (NEGATIVE); Benzodiazephine Screen, Urine Neg (NEGATIVE); Cannabinoid Screen, Urine Neg (NEGATIVE); Cocaine Screen, Urine Neg (NEGATIVE); Opiate Scree,Urine Neg (NEGATIVE); Phencyclidine Screen, Urine Neg (NEGATIVE)
[2024-12-01 06:25] LABS: Basophils # (auto) 0 10 ^3/uL (0-0.2); Basophils % (auto) 0.7 % (0.0-2.0); Eosinophils # (auto) 0.2 10 ^3/uL (0-0.8); Eosinophils % (auto) 4.3 % (0.0-7.0); Hematocrit 46.6 % (41.0-53.0); Hemoglobin 15.3 g/dL (13.5-17.5); Lymphocytes # (auto) 1.6 10 ^3/uL (0.4-5.4); Lymphocytes % (auto) 41.3 % (10.0-50.0); Mean Corpuscular Hemoglobin 27.4 pg (28.0-32.0); Mean Corpuscular Hgb Conc. 32.8 g/dL (32.0-36.0); Mean Corpuscular Volume 83.5 fL (80.0-100.0); Monocytes # (auto) 0.4 10 ^3/uL (0-1.3); Monocytes % (auto) 10.2 % (0.0-12.0); Neutrophils # (auto) 1.7 10 ^3/uL (1.6-8.6); Neutrophils % (auto) 43.5 % (37.0-80.0); Nucleated Red Blood Cells % 0.3 %; Platelet Count (auto) 187 10^3/uL (140-450); Red Blood Cells 5.58 10^6/uL (4.5-5.90); White Blood Cell 3.8 10^3/uL (4.4-10.8)
[2024-12-01 06:31] LABS: Albumin 3.6 g/dL (3.2-4.8); Anion Gap 8 (5-15); Aspartate Aminotransferase 30 U/L (13-40); BUN/Creatinine Ratio 13.3 (10.0-20.0); Calcium 9.5 mg/dL (8.7-10.4); Carbon Dioxide 26 mmol/L (20-31); Glucose 93 mg/dL (74-106); Potassium 3.9 mmol/L (3.5-5.1)
[2024-12-01 06:36] LABS: Alanine Aminotransferase 55 U/L (7-40); Alkaline Phosphatase 39 U/L (46-116); Bilirubin, Total 1.3 mg/dL (0.2-1.0); Blood Urea Nitrogen 30 mg/dL (9-23); Chloride 112 mmol/L (98-107); Sodium 146 mmol/L (136-145); Total Protein 5.6 g/dL (5.7-8.2)
[2024-12-01] MEDS: FUROSEMIDE 40 MG/4 ML VIAL IV SCH (06:46)
--- NOTE | 2024-12-01 07:19 | ECG ---
[facility] Test Date: 2024-11-30 Test Time: 12:33:07 Pat Name: SCOTTY OLMSTEAD Department: A Room: 0270T Gender: M Labor Supervisor: ANTHONY : 1975 Requested By: MARYCARMEN WHITESIDE Order Number: [id number] Reading MD: Renny Quiñonez Measurements Intervals [place] Rate: 104 P: 64 CO: 162 QRS: 7 QRSD: 104 T: 170 QT: 338 QTc: 445 Interpretive Statements Sinus tachycardia Multiple ventricular premature complexes Probable left atrial enlargement LVH with secondary repolarization abnormality Electronically Signed On 12-02-2024 18:00:06 PST by Renny Quiñonez Please click the below link to view image of tracing.
[2024-12-01 07:30] VITALS: PULSE 97; RESP 20; O2SAT 96
[2024-12-01] MEDS ORDERED: ENOXAPARIN SOD 40 MG/0.4 ML SYRINGE SC SCH (10:00)
[2024-12-01] MEDS: ISOSORBIDE MONONITRATE ER 60 MG TAB PO SCH (10:26)
[2024-12-01] MEDS: HEPARIN SODIUM (PORCINE) 5000 UNITS/ML 1ML VIAL SC SCH (10:27)
[2024-12-01] MEDS: ERGOCALCIFEROL 50,000 UNIT(1.25MG) CAP PO SCH (12:26)
--- NOTE | 2024-12-01 14:20 | DVHSR ---
APPROVED REPORT EXAM: Two-dimensional and M-mode echocardiogram with Doppler and color Doppler. Blood Pressure: 153/115 mmHg INDICATION Eval cardiac function RISK FACTORS Height: 70, Weight: 211 DIMENSIONS LVDd7.1 (3.8-5.7cm)LA (2D)5.5 (1.9-4.0cm)Aortic Root4.1 (2.0-3.7cm) LVDs6.5 (2.5-4.0cm)LA (MM) (1.9-4.0cm)Aortic Cusp Exc1.9 (1.5-2.0cm) EF (%) 20.0 (55-70%)Rt. Atrium5.1 (1.9-4.0cm)Asc. Aorta cm IVSd1.4 (0.7-1.1cm)RV (D) (1.8-2.4cm) PWd1.5 (0.7-1.1cm) Mitral Valve MitralMitral Stenosis E wave1.46m/sMV Mean GR.3mmHg A wavem/sMV Peak GR.200mmHg E/A ratio0.02D MVAcm2 DECEL TimemsPRESS 1/2 [id number] IVRTmsDop MVA0.54cm2 Aortic Valve Aortic ValveAortic Stenosis V10.86m/Kathrine Mean GR.2mmHg V21.01m/Kathrine Peak GR.4mmHg LVOT Diameter2.5 (1.8-2.4cm)Doppler AVA4.18cm2 Pulmonic Valve V20.61m/s Tricuspid Valve TR Velocity2.65m/s [id number] Conclusion lvef 10% severe dilated LV cavity size end stage cardioimyopathy RV enlarged mild with mild dysfunction sevre mitral regurg severe tricuspid regurg biatrial enlargement
[2024-12-01 16:22] VITALS: BP 153/109; PULSE 60; RESP 19; TEMP 97.4; O2SAT 97
--- NOTE | 2024-12-01 16:22 | DVHPNRES ---
Progress Note Date Seen: Dec 01, 2024 Resident Creating Document: JOEY ROSALES RESIDENT Medical Necessity Reason Pt with a Central, PICC or Fol: No Subjective Review of Systems Mr. Pandya is a 49-year-old male patient with past medical history of congestive heart failure diagnosed June 16, 2023, hypertension, diabetes mellitus type, presented to the ER with a chief complaint of shortness of breath on exertion for the past 4 weeks. Patient reports that a month back his whole family got sick with runny nose and flu-like symptoms, following which he developed dyspnea but denies orthopnea or paroxysmal nocturnal dyspnea. Uses 2 pillows for a long time to sleep. Patient also developed a cough which was productive, now the cough is resolved. Denies chest pain/diaphoresis/fevers/chills/palpitations. Patient became in this hospital in June 16, 2023 when EF was 20%, he was diagnosed with CHF and his creatinine was 2.0 therefore outpatient angiogram was advised but he never followed with a meteorological observer as outpatient. He was discharged on isosorbide mononitrate, metoprolol, Jardiance and hydralazine. Patient reports taking a low-dose medication regularly until the past 3 days when he stopped as he thought his symptoms are due to medication. On an angle, patient's blood pressure was 188/134 mmHg, troponin were elevated in 112th, downtrending. Patient troponin were in this range in the last visit to the hospital too. EKG completed, showed PVCs and isolated ST segment depression. Past medical/surgical history: See above Social history: Denies smoking, lifetime drinking or any illicit drug use Home medications: Furosemide 40 mg p.o. daily, Jardiance 10 mg p.o. daily, hydralazine 50 mg p.o. t.i.d., isosorbide mononitrate 30 mL p.o. daily, metoprolol 50 mg p.o. b.i.d. Objective vital signs Vital Sign Date Time Temp Pulse Resp B/P (MAP) Pulse Ox O2 Delivery O2 Flow Rate FiO2 12/01/24 14:00 78 16 128/92 (104) 98 12/01/24 07:30 97.4 97.4 12/01/24 07:30 Nasal Cannula* 2 28 medications Current Medications Medications Dose Ordered Sig/Jinny Route Start Time Stop Time Status Last Admin Dose Admin Furosemide 40 mg BIDD IV 12/01/24 06:00 12/01/24 06:46 40 MG Isosorbide Mononitrate 30 mg DAILY PO 12/01/24 10:00 12/01/24 10:26 30 MG Hydralazine HCl 25 mg Q12HR PO 11/30/24 22:00 12/01/24 10:25 25 MG Acetaminophen 650 mg Q6HP PRN PO 11/30/24 21:30 Enoxaparin Sodium 40 mg DAILY SC 12/01/24 10:00 Cancel Nitroglycerin 0.4 mg Q5MINP PRN SL 11/30/24 21:30 Morphine Sulfate 2 mg Q30M PRN IV 11/30/24 21:30 Heparin Sodium (Porcine) 5,000 units Q12HR SC 12/01/24 10:00 12/01/24 10:27 5,000 UNITS Ergocalciferol 50,000 unit Q7D PO 12/01/24 11:15 12/01/24 12:26 50,000 UNIT Examination Patient lying in bed, in no acute distress General: Well-built, afebrile, palor, mucosae are moist Cardiovascular: Tachycardia but Regular S1 and S2. No murmurs, gallops or rubs. No JVD elevation. No pedal edema Respiratory: Bilateral crackles heard on auscultation, saturating 91 on 2 L Abdomen: Soft, nontender, nondistended, normoactive bowel sounds, no rebound tenderness, no organomegaly, no masses Genitourinary: Deferred MSK/skin: Mobilizes 4 limbs. Skin is dry and warm Neurological: No motor, no sensitive deficits, normal speech. Pupils are isocoric and reactive. Psych/Mental Status: A/Ox3 laboratory and microbiology Laboratory Tests 12/01/24 05:46 Test 12/01/24 05:46 Range/Units Serum Glucose 93 74-106 mg/dL Labs and/or images reviewed: Labs reviewed by me, Image(s) reviewed by me Problem List/Assessment/Plan Problem List/Assessment/Plan Acute on chronic decompensated systolic heart failure-EF 20%-NYHA class 3 Severe mitral regurgitation Acute hypoxic respiratory failure secondary to above NSTEMI, likely type 2 Hypertensive urgency Ischemic versus nonischemic cardiomyopathy Cardiology consulted-started hydralazine 25 mg b.i.d., isosorbide mononitrate 30 mg daily, Lasix 40 mg IV b.i.d. Echocardiogram pending Cardiac diet, fluid restrictions, strict I&Os BNP and troponin elevated Diabetes mellitus type 2-hemoglobin A1c 5.9 On ISS Darryl versus CKD ? Cardiorenal Nephrology consulted - Creatinine 2.36 on arrival, baseline 2.01n 05/2023 Hypernatremia Obesity Lifestyle measures advised Heparin 5000 units b.i.d. for DVT prophylaxis Cardiac diet Plan discussed with patient in which all questions have been answered Goals of care discussed with patient for more than 22 minutes, full code status Case discussed with Dr. Olson Plan discussed with: Patient My Orders My Orders Orders - JOEY ROSALES Procedure Category Date Status Time Cardiac DIET 12/01/24 Transmitted Diet-2gna,Lofat,Lochol Breakfast Ergocalciferol PHA 12/01/24 In Process (Vitamin D 50,000 11:15 Date of Service: Dec 01, 2024 Billing Provider: LOREN LONG MD Common Visit Codes: [id number] INP/OBS CARE(HIGH) JOEY ROSALES Dec 01, 2024 16:22 LOREN LONG MD Dec 04, 2024 01:49
[2024-12-01 16:30] VITALS: BP 153/108; PULSE 60; RESP 19; TEMP 97.4; O2SAT 97
--- NOTE | 2024-12-01 17:15 | DVHINCON2 ---
Date of service: Dec 01, 2024 Reason for Consultation STANISLAV History of Present Illness 49 years old male with past medical history of hypertension, obesity, congestive heart failure, Chronic kidney disease IIIb presented with chief complaints of shortness of breath that has been ongoing for the past several weeks but now worse patient has been noncompliant with his blood pressure medications, denies any urinary complaints his family member is seen and examined in emergency room Past Medical History As per HPI Past Surgical History Denies any Allergies: Coded Allergies: NO KNOWN ALLERGIES (Unverified , 08/24/19) Home Meds Active Scripts Furosemide (Lasix) 40 Mg Tab, 40 MG PO DAILY, #90 TAB Prov:DERIC FOSTER MD 06/19/23 Empagliflozin (Jardiance) 10 Mg Tab, 10 MG PO DAILY, #90 TAB Prov:DERIC FOSTER MD 06/19/23 Hydralazine Hcl (Hydralazine Hcl) 50 Mg Tab, 50 MG PO DAILY, #90 TAB Prov:DERIC FOSTER MD 06/19/23 Isosorbide Mononitrate (Isosorbide Mononitrate Er) 30 Mg Tab, 30 MG PO DAILY, #90 TAB Prov:DERIC FOSTER MD 06/19/23 Metoprolol Tartrate (Metoprolol Tartrate) 50 Mg Tab, 50 MG PO BID, #180 TAB Prov:DERIC FOSTER MD 06/19/23 Aspirin (ASPIRIN/ENTERIC) 81 Mg Tab, 81 MG PO DAILY, #90 TAB Prov:DERIC FOSTER MD 06/19/23 Reported Medications Dextromethorphan-Guaifenesin (Robitussin-Dm) 10 Ml Sr, 10 ML GT, SYP 06/15/23 Current Medications Current Medications Medications (Trade) Dose Ordered Sig/Jinny Route PRN Reason Start Time Stop Time Status Last Admin Furosemide (Lasix Injection) 40 mg BIDD IV 12/01/24 06:00 12/01/24 06:46 Isosorbide Mononitrate (Imdur Er Tablet) 30 mg DAILY PO 12/01/24 10:00 12/01/24 10:26 Hydralazine HCl (Apresoline Tablet) 25 mg Q12HR PO 11/30/24 22:00 12/01/24 10:25 Acetaminophen (Tylenol Tablet) 650 mg Q6HP PRN PO PAIN SCALE 1-3 OR TEMP>100.4 11/30/24 21:30 Enoxaparin Sodium (Lovenox) 40 mg DAILY SC 12/01/24 10:00 Cancel Nitroglycerin (Ntrostat Sublingual) 0.4 mg Q5MINP PRN SL FOR CHEST PAIN 11/30/24 21:30 Morphine Sulfate 2 mg Q30M PRN IV FOR CHEST PAIN 11/30/24 21:30 Heparin Sodium (Porcine) 5,000 units Q12HR SC 12/01/24 10:00 12/01/24 10:27 Ergocalciferol (Vitamin D 50,000 Unit) 50,000 unit Q7D PO 12/01/24 11:15 12/01/24 12:26 Family History: Patient reports no known family medical history. Social History Denies smoking, drinking, drugs Review of Systems HEENT-denies headache, denies vision changes, no hearing issue, denies neck complaints, denies throat issues Respiratory system-denies cough, positive shortness of breath Cardiovascular system-denies chest pain, denies palpitations Abdomen-denies abdominal pain, denies nausea, denies vomiting, denies constipation or diarrhea Musculoskeletal-positive swelling in the legs, denies pain in the extremities Genitourinary-denies urinary symptoms like dysuria, stream issues Neuro-denies dizziness, denies seizures Psychiatric-denies psychiatric history H&P Exam Vital Signs/I&O Vital Sign Date Time Temp Pulse Resp B/P (MAP) Pulse Ox O2 Delivery O2 Flow Rate FiO2 12/01/24 16:30 97.4 60 19 153/108 (123) 97 97.4 12/01/24 07:30 Nasal Cannula* 2 28 Physical Exam General-not in any distress HEENT-normocephalic, no icterus, no pallor, neck supple Respiratory-positive rales [id number] heard, Abdominal-soft, nontender, nondistended Musculoskeletal-++ pedal edema, no calf tenderness Genitourinary-deferred Neuro-awake alert oriented x3, Psychiatric-not agitated, cooperative, Labs/Diagnostic Data Labs/Diagnostic Data Laboratory Tests Test 12/01/24 05:46 12/01/24 01:45 11/30/24 15:52 11/30/24 14:02 Range/Units White Blood Count 3.8 L 4.4-10.8 10^3/uL Red Blood Count 5.58 4.5-5.90 10^6/uL Hemoglobin 15.3 13.5-17.5 g/dL Hematocrit 46.6 41.0-53.0 % Mean Corpuscular Volume 83.5 80.0-100.0 fL Mean Corpuscular Hemoglobin 27.4 L 28.0-32.0 pg Mean Corpuscular Hemoglobin Concent 32.8 32.0-36.0 g/dL Red Cell Distribution Width 16.0 H 11.8-14.3 % Platelet Count 187 140-450 10^3/uL Mean Platelet Volume 9.1 6.9-10.8 fL Neutrophils (%) (Auto) 43.5 37.0-80.0 % Lymphocytes (%) (Auto) 41.3 10.0-50.0 % Monocytes (%) (Auto) 10.2 0.0-12.0 % Eosinophils (%) (Auto) 4.3 0.0-7.0 % Basophils (%) (Auto) 0.7 0.0-2.0 % Neutrophils # (Auto) 1.7 1.6-8.6 10 ^3/uL Lymphocytes # (Auto) 1.6 0.4-5.4 10 ^3/uL Monocytes # (Auto) 0.4 0-1.3 10 ^3/uL Eosinophils # (Auto) 0.2 0-0.8 10 ^3/uL Basophils # (Auto) 0 0-0.2 10 ^3/uL Nucleated Red Blood Cells 0.3 % Sodium Level 146 H 136-145 mmol/L Potassium Level 3.9 3.5-5.1 mmol/L Chloride Level 112 H 98-107 mmol/L Carbon Dioxide Level 26 20-31 mmol/L Anion Gap 8 5-15 Blood Urea Nitrogen 30 H 9-23 mg/dL Creatinine 2.26 H 0.700-1.30 mg/dL Glomerular Filtration Rate Calc 35 >90 mL/min BUN/Creatinine Ratio 13.3 10.0-20.0 Serum Glucose 93 74-106 mg/dL Calcium Level 9.5 8.7-10.4 mg/dL Magnesium Level 1.9 1.6-2.6 mg/dL Total Bilirubin 1.3 H 0.2-1.0 mg/dL Aspartate Amino Transferase (AST) 30 13-40 U/L Alanine Aminotransferase (ALT) 55 H 7-40 U/L Alkaline Phosphatase 39 L 46-116 U/L Total Protein 5.6 L 5.7-8.2 g/dL Albumin 3.6 3.2-4.8 g/dL Vitamin B12 Level 951 H 211-911 pg/mL Vitamin D 25-Hydroxy 25.6 L 30.0-100 ng/mL Thyroid Stimulating Hormone (TSH) 0.97 0.55-4.78 uIU/mL Urine Color Straw Yellow Urine Clarity Clear Clear Urine pH 6.5 5.0-9.0 Urine Specific [place] 1.006 1.001-1.035 Urine Protein Negative Negative Urine Ketones Negative Negative Urine Blood Negative Negative /uL Urine Nitrite Negative Negative Urine Bilirubin Negative Negative Urine Urobilinogen Normal Negative mg/dL Urine Leukocyte Esterase Negative Negative /uL Urine RBC <1 0 - 3 /hpf Urine Microscopic WBC 1 0-3 /HPF Urine Squamous Epithelial Cells None seen <5 /hpf Urine Bacteria None seen None Seen /hpf Urine Glucose Normal Normal mg/dL Urine Opiates Screen Neg NEGATIVE Urine Fentanyl Screen Neg NEGATIVE Urine Barbiturates Screen Neg NEGATIVE Urine Phencyclidine Screen Neg NEGATIVE Urine Amphetamines Screen Neg NEGATIVE Urine Benzodiazepines Screen Neg NEGATIVE Urine Cocaine Screen Neg NEGATIVE Urine Cannabinoids Screen Neg NEGATIVE D-Dimer, Quantitative < 0.19 0.0-0.49 mg/L FEU Troponin I High Sensitivity 106 *H 112 *H </=54 ng/L Test 11/30/24 13:04 Range/Units White Blood Count 4.8 4.4-10.8 10^3/uL Red Blood Count 5.98 H 4.5-5.90 10^6/uL Hemoglobin 16.7 13.5-17.5 g/dL Hematocrit 50.5 41.0-53.0 % Mean Corpuscular Volume 84.5 80.0-100.0 fL Mean Corpuscular Hemoglobin 28.0 28.0-32.0 pg Mean Corpuscular Hemoglobin Concent 33.1 32.0-36.0 g/dL Red Cell Distribution Width 16.2 H 11.8-14.3 % Platelet Count 222 140-450 10^3/uL Mean Platelet Volume 9.0 6.9-10.8 fL Neutrophils (%) (Auto) 50.4 37.0-80.0 % Lymphocytes (%) (Auto) 36.0 10.0-50.0 % Monocytes (%) (Auto) 10.8 0.0-12.0 % Eosinophils (%) (Auto) 2.2 0.0-7.0 % Basophils (%) (Auto) 0.6 0.0-2.0 % Neutrophils # (Auto) 2.4 1.6-8.6 10 ^3/uL Lymphocytes # (Auto) 1.7 0.4-5.4 10 ^3/uL Monocytes # (Auto) 0.5 0-1.3 10 ^3/uL Eosinophils # (Auto) 0.1 0-0.8 10 ^3/uL Basophils # (Auto) 0 0-0.2 10 ^3/uL Nucleated Red Blood Cells 0.3 % Sodium Level 146 H 136-145 mmol/L Potassium Level 4.6 3.5-5.1 mmol/L Chloride Level 110 H 98-107 mmol/L Carbon Dioxide Level 28 20-31 mmol/L Anion Gap 8 5-15 Blood Urea Nitrogen 37 H 9-23 mg/dL Creatinine 2.36 H 0.700-1.30 mg/dL Glomerular Filtration Rate Calc 33 >90 mL/min BUN/Creatinine Ratio 15.7 10.0-20.0 Serum Glucose 132 H 74-106 mg/dL Hemoglobin A1c 5.9 H <5.7 % A1C Calcium Level 10.5 H 8.7-10.4 mg/dL Troponin I High Sensitivity 112 *H </=54 ng/L B-Type Natriuretic Peptide 2859.79 0-100 pg/mL Assessment Acute kidney injury likely cardiorenal etiology Possible baseline Chronic kidney disease IIIb Acute on chronic Congestive heart failure reduced ejection fraction exacerbation EF 10 End-stage cardiomyopathy Hypertensive emergency Recommendations Agree with diuretics continue as tolerated Blood pressure control Kidney ultrasound Urine analysis looks normal We will follow renal function Plan discussed with: Patient SYDNEY BALLARD MD Dec 01, 2024 17:15
--- NOTE | 2024-12-01 18:17 | DVH ---
EXAM: US Retroperitoneal Limited, Renal CLINICAL INDICATION: STANISLAV TECHNIQUE: Real-time limited ultrasound of the retroperitoneum with image documentation. COMPARISON: None FINDINGS: RIGHT KIDNEY: Right kidney measures up to 8.0 cm. No stones. No hydronephrosis. LEFT KIDNEY: Left kidney measures up to 9.3 cm. No stones. No hydronephrosis. BLADDER: Urinary bladder appears normal for its size of distention. OTHER FINDINGS: . IMPRESSION: Unremarkable exam.
[2024-12-01 20:00] VITALS: PULSE 105; PULSE 89; RESP 20; O2SAT 97
[2024-12-01 21:00] VITALS: BP 146/113; PULSE 105; RESP 20; TEMP 97.8; O2SAT 97
[2024-12-02] VITALS (8 sets, daily range): BP systolic 120–151; BP diastolic 73–107; PULSE 96–111; RESP 16–20; TEMP 97.6–98.8; O2SAT 91–99
[2024-12-02 05:55] LABS: Basophils # (auto) 0 10 ^3/uL (0-0.2); Basophils % (auto) 0.4 % (0.0-2.0); Eosinophils # (auto) 0.2 10 ^3/uL (0-0.8); Eosinophils % (auto) 5.7 % (0.0-7.0); Hematocrit 48.7 % (41.0-53.0); Lymphocytes # (auto) 1.6 10 ^3/uL (0.4-5.4); Lymphocytes % (auto) 41.1 % (10.0-50.0); Mean Corpuscular Hemoglobin 27.2 pg (28.0-32.0); Mean Corpuscular Hgb Conc. 32.8 g/dL (32.0-36.0); Mean Corpuscular Volume 82.8 fL (80.0-100.0); Monocytes # (auto) 0.5 10 ^3/uL (0-1.3); Monocytes % (auto) 11.7 % (0.0-12.0); Neutrophils # (auto) 1.6 10 ^3/uL (1.6-8.6); Neutrophils % (auto) 41.1 % (37.0-80.0); Nucleated Red Blood Cells % 0.4 %; Platelet Count (auto) 177 10^3/uL (140-450); Red Blood Cells 5.88 10^6/uL (4.5-5.90); Red Cell Distribution Width 16.2 % (11.8-14.3); White Blood Cell 3.9 10^3/uL (4.4-10.8)
[2024-12-02 06:25] LABS: Albumin 3.7 g/dL (3.2-4.8); Anion Gap 12 (5-15); Aspartate Aminotransferase 23 U/L (13-40); BUN/Creatinine Ratio 12.1 (10.0-20.0); Calcium 9.5 mg/dL (8.7-10.4); Carbon Dioxide 28 mmol/L (20-31); Chloride 105 mmol/L (98-107); Glucose 84 mg/dL (74-106); Magnesium 1.9 mg/dL (1.6-2.6); Sodium 145 mmol/L (136-145); Total Protein 5.9 g/dL (5.7-8.2)
[2024-12-02 06:31] LABS: Alanine Aminotransferase 48 U/L (7-40); Alkaline Phosphatase 40 U/L (46-116); Bilirubin, Total 1.3 mg/dL (0.2-1.0); Blood Urea Nitrogen 27 mg/dL (9-23); Potassium 3.3 mmol/L (3.5-5.1)
[2024-12-02] MEDS: hydrALAZINE HCL 25 MG TAB PO SCH (08:58)
[2024-12-02] MEDS: POTASSIUM EFFERVESENT TAB 25 MEQ PO ONE (08:59)
--- NOTE | 2024-12-02 11:20 | DVHPN2 ---
Progress Note Date Seen: Dec 02, 2024 Medical Necessity Reason Pt with a Central, PICC or Fol: No Subjective Patient reports: No new complaints Review of Systems: HEENT:Normal, CVS:Normal, RESPIRATORY:Abnormal, GI:Normal, :Normal, MSK:Normal, NEURO:Normal Objective vital signs Vital Sign Date Time Temp Pulse Resp B/P (MAP) Pulse Ox O2 Delivery O2 Flow Rate FiO2 12/02/24 08:58 146/106 12/02/24 08:45 97.8 100 16 95 97.8 12/02/24 08:00 Room Air* 0 21 Total Intake and Output 12/01/24 12/01/24 12/02/24 15:00 23:00 07:00 Intake Total 240 ml 800 ml Output Total 1300 ml Balance 240 ml -500 ml medications Current Medications Medications Dose Ordered Sig/Jinny Route Start Time Stop Time Status Last Admin Dose Admin Furosemide 40 mg BIDD IV 12/01/24 06:00 12/02/24 05:42 40 MG Isosorbide Mononitrate 30 mg DAILY PO 12/01/24 10:00 12/02/24 08:58 30 MG Acetaminophen 650 mg Q6HP PRN PO 11/30/24 21:30 Enoxaparin Sodium 40 mg DAILY SC 12/01/24 10:00 Cancel Nitroglycerin 0.4 mg Q5MINP PRN SL 11/30/24 21:30 Morphine Sulfate 2 mg Q30M PRN IV 11/30/24 21:30 Heparin Sodium (Porcine) 5,000 units Q12HR SC 12/01/24 10:00 12/02/24 09:05 5,000 UNITS Ergocalciferol 50,000 unit Q7D PO 12/01/24 11:15 12/01/24 12:26 50,000 UNIT Hydralazine HCl 25 mg Q8HR PO 12/02/24 08:15 12/02/24 08:58 25 MG Examination: GENERAL:Normal, HEENT:Normal, NECK:Normal, LUNGS:Abnormal, CVS:Normal, ABDOMEN:Normal, MSK:Normal, SKIN:Normal, NEURO:Normal, :Normal laboratory and microbiology Laboratory Tests 12/02/24 04:20 Test 12/02/24 04:20 Range/Units Serum Glucose 84 74-106 mg/dL Problem List/Assessment/Plan Problem List/Assessment/Plan Acute kidney injury likely cardiorenal etiology Possible baseline Chronic kidney disease IIIb Acute on chronic Congestive heart failure reduced ejection fraction exacerbation EF 10 End-stage cardiomyopathy Hypertensive emergency Recommendations Agree with diuretics continue as tolerated Blood pressure control Kidney ultrasound wnl Urine analysis looks normal We will follow renal function Plan discussed with: Patient My Orders My Orders Orders - SYDNEY BALLARD MD Procedure Category Date Status Time Kidney US 12/01/24 Resulted 17:11 SYDNEY BALLARD MD Dec 02, 2024 11:20
--- NOTE | 2024-12-02 12:47 | DVHPNRES ---
Progress Note Date Seen: Dec 02, 2024 Resident Creating Document: JOEY ROSALES RESIDENT Medical Necessity Reason Pt with a Central, PICC or Fol: No Subjective Review of Systems Mr. Pandya is a 49-year-old male patient with past medical history of congestive heart failure diagnosed June 16, 2023, hypertension, diabetes mellitus type, presented to the ER with a chief complaint of shortness of breath on exertion for the past 4 weeks. Patient reports that a month back his whole family got sick with runny nose and flu-like symptoms, following which he developed dyspnea but denies orthopnea or paroxysmal nocturnal dyspnea. Uses 2 pillows for a long time to sleep. Patient also developed a cough which was productive, now the cough is resolved. Denies chest pain/diaphoresis/fevers/chills/palpitations. Patient became in this hospital in June 16, 2023 when EF was 20%, he was diagnosed with CHF and his creatinine was 2.0 therefore outpatient angiogram was advised but he never followed with a information analyst as outpatient. He was discharged on isosorbide mononitrate, metoprolol, Jardiance and hydralazine. Patient reports taking a low-dose medication regularly until the past 3 days when he stopped as he thought his symptoms are due to medication. On an angle, patient's blood pressure was 188/134 mmHg, troponin were elevated in 112th, downtrending. Patient troponin were in this range in the last visit to the hospital too. EKG completed, showed PVCs and isolated ST segment depression. Past medical/surgical history: See above Social history: Denies smoking, lifetime drinking or any illicit drug use Home medications: Furosemide 40 mg p.o. daily, Jardiance 10 mg p.o. daily, hydralazine 50 mg p.o. t.i.d., isosorbide mononitrate 30 mL p.o. daily, metoprolol 50 mg p.o. b.i.d. 12/02/2024-patient seen and examined at the bedside. Increase hydralazine to Q 8. No complaint. Echo completed, EF 10%, severely dilated LV, severe tricuspid and mitral regurgitation. Objective vital signs Vital Sign Date Time Temp Pulse Resp B/P (MAP) Pulse Ox O2 Delivery O2 Flow Rate FiO2 12/02/24 08:58 146/106 12/02/24 08:45 97.8 100 16 95 97.8 12/02/24 08:00 Room Air* 0 21 Total Intake and Output 12/01/24 12/01/24 12/02/24 15:00 23:00 07:00 Intake Total 240 ml 800 ml Output Total 1300 ml Balance 240 ml -500 ml medications Current Medications Medications Dose Ordered Sig/Jinny Route Start Time Stop Time Status Last Admin Dose Admin Furosemide 40 mg BIDD IV 12/01/24 06:00 12/02/24 05:42 40 MG Isosorbide Mononitrate 30 mg DAILY PO 12/01/24 10:00 12/02/24 08:58 30 MG Acetaminophen 650 mg Q6HP PRN PO 11/30/24 21:30 Enoxaparin Sodium 40 mg DAILY SC 12/01/24 10:00 Cancel Nitroglycerin 0.4 mg Q5MINP PRN SL 11/30/24 21:30 Morphine Sulfate 2 mg Q30M PRN IV 11/30/24 21:30 Heparin Sodium (Porcine) 5,000 units Q12HR SC 12/01/24 10:00 12/02/24 09:05 5,000 UNITS Ergocalciferol 50,000 unit Q7D PO 12/01/24 11:15 12/01/24 12:26 50,000 UNIT Hydralazine HCl 25 mg Q8HR PO 12/02/24 08:15 12/02/24 08:58 25 MG Examination Patient lying in bed, in no acute distress General: Well-built, afebrile, palor, mucosae are moist Cardiovascular: Tachycardia but Regular S1 and S2. No murmurs, gallops or rubs. No JVD elevation. No pedal edema Respiratory: Bilateral crackles heard on auscultation, saturating 91 on 2 L Abdomen: Soft, nontender, nondistended, normoactive bowel sounds, no rebound tenderness, no organomegaly, no masses Genitourinary: Deferred MSK/skin: Mobilizes 4 limbs. Skin is dry and warm Neurological: No motor, no sensitive deficits, normal speech. Pupils are isocoric and reactive. Psych/Mental Status: A/Ox3 laboratory and microbiology Laboratory Tests 12/02/24 04:20 Test 12/02/24 04:20 Range/Units Serum Glucose 84 74-106 mg/dL Labs and/or images reviewed: Labs reviewed by me, Image(s) reviewed by me Problem List/Assessment/Plan Problem List/Assessment/Plan Acute on chronic decompensated systolic heart failure-EF 20%-NYHA class 3 Severe mitral regurgitation Acute hypoxic respiratory failure secondary to above NSTEMI, likely type 2 Hypertensive urgency Ischemic versus nonischemic cardiomyopathy Cardiology consulted-started hydralazine 25 mg b.i.d., isosorbide mononitrate 30 mg daily, Lasix 40 mg IV b.i.d. Echocardiogram completed, EF 10%, severely dilated LV, severe tricuspid and mitral regurgitation. Cardiac diet, fluid restrictions, strict I&Os BNP and troponin elevated. Increase hydralazine to Q 8 hourly ? Left heart catheterization Diabetes mellitus type 2-hemoglobin A1c 5.9 On ISS Acute kidney injury likely cardiorenal etiology Possible baseline Chronic kidney disease IIIb Nephrology consulted - continue diuresis Renal ultrasound completed, unremarkable Creatinine 2.36 on arrival, baseline 2.0 in 05/2023 Hypernatremia Obesity Lifestyle measures advised Heparin 5000 units b.i.d. for DVT prophylaxis Cardiac diet Plan discussed with patient in which all questions have been answered Goals of care discussed with patient for more than 22 minutes, full code status Case discussed with Dr. Willis Plan discussed with: Patient My Orders My Orders Orders - JOEY ROSALES Procedure Category Date Status Time Hydralazine Hcl PHA 12/02/24 In Process Tablet (Apresoline 08:15 Date of Service: Dec 02, 2024 Billing Provider: CARLOS WILLIS MD Common Visit Codes: [id number] INP/OBS CARE(HIGH) JOEY ROSALES Dec 02, 2024 12:47 CARLOS WILLIS MD Dec 03, 2024 17:40
[2024-12-03] VITALS (7 sets, daily range): BP systolic 126–136; BP diastolic 78–91; PULSE 62–103; RESP 16–19; TEMP 97.4–98.2; O2SAT 90–100
[2024-12-03 13:32] LABS: Anion Gap 5 (5-15); Calcium 9.8 mg/dL (8.7-10.4); Chloride 102 mmol/L (98-107); Potassium 3.8 mmol/L (3.5-5.1); Sodium 141 mmol/L (136-145)
[2024-12-03 13:36] LABS: Carbon Dioxide 34 mmol/L (20-31)
[2024-12-03 13:38] LABS: BUN/Creatinine Ratio 10.4 (10.0-20.0); Blood Urea Nitrogen 23 mg/dL (9-23)
[2024-12-03 13:39] LABS: Glucose 121 mg/dL (74-106); Magnesium 2.1 mg/dL (1.6-2.6)
--- NOTE | 2024-12-03 14:11 | DVHPNRES ---
Progress Note Date Seen: Dec 03, 2024 Resident Creating Document: JESUS DENNIS RESIDENT Medical Necessity Reason Pt with a Central, PICC or Fol: No Subjective Review of Systems Mr. Pandya is a 49-year-old male patient with past medical history of congestive heart failure diagnosed June 16, 2023, hypertension, diabetes mellitus type, presented to the ER with a chief complaint of shortness of breath on exertion for the past 4 weeks. Patient reports that a month back his whole family got sick with runny nose and flu-like symptoms, following which he developed dyspnea but denies orthopnea or paroxysmal nocturnal dyspnea. Uses 2 pillows for a long time to sleep. Patient also developed a cough which was productive, now the cough is resolved. Denies chest pain/diaphoresis/fevers/chills/palpitations. Patient became in this hospital in June 16, 2023 when EF was 20%, he was diagnosed with CHF and his creatinine was 2.0 therefore outpatient angiogram was advised but he never followed with a skiver machine as outpatient. He was discharged on isosorbide mononitrate, metoprolol, Jardiance and hydralazine. Patient reports taking a low-dose medication regularly until the past 3 days when he stopped as he thought his symptoms are due to medication. On an angle, patient's blood pressure was 188/134 mmHg, troponin were elevated in 112th, downtrending. Patient troponin were in this range in the last visit to the hospital too. EKG completed, showed PVCs and isolated ST segment depression. Past medical/surgical history: See above Social history: Denies smoking, lifetime drinking or any illicit drug use Home medications: Furosemide 40 mg p.o. daily, Jardiance 10 mg p.o. daily, hydralazine 50 mg p.o. t.i.d., isosorbide mononitrate 30 mL p.o. daily, metoprolol 50 mg p.o. b.i.d. 12/02/2024-patient seen and examined at the bedside. Increase hydralazine to Q 8. No complaint. Echo completed, EF 10%, severely dilated LV, severe tricuspid and mitral regurgitation. 12/03/2024-patient was seen today for clinical evaluation. Labs and chart reviewed. Echo 2D- EF 10%, severely dilated LV, severe tricuspid and mitral regurgitation. Patient was taken off oxygen. Patient breathing well in room air and also on ambulation. No desaturation of oxygen. Plan is to watch patient overnight if he desaturates or not. As per Cardiology patient is a poor candidate for left heart catheterization because of CKD which might worsene to ESRD on left heart catheterization. Patient had a temporary AFib today for for seconds. Ordered metoprolol 25 mg p.o. daily. Objective vital signs Vital Sign Date Time Temp Pulse Resp B/P (MAP) Pulse Ox O2 Delivery O2 Flow Rate FiO2 12/03/24 13:03 98.1 103 19 127/78 (94) 98 98.1 12/03/24 08:00 Room Air* 0 21 Total Intake and Output 12/02/24 12/02/24 12/03/24 15:00 23:00 07:00 Intake Total 300 ml 900 ml 800 ml Balance 300 ml 900 ml 800 ml medications Current Medications Medications Dose Ordered Sig/Jinny Route Start Time Stop Time Status Last Admin Dose Admin Furosemide 40 mg BIDD IV 12/01/24 06:00 12/02/24 17:05 40 MG Isosorbide Mononitrate 30 mg DAILY PO 12/01/24 10:00 12/03/24 09:04 30 MG Acetaminophen 650 mg Q6HP PRN PO 11/30/24 21:30 Enoxaparin Sodium 40 mg DAILY SC 12/01/24 10:00 Cancel Nitroglycerin 0.4 mg Q5MINP PRN SL 11/30/24 21:30 Morphine Sulfate 2 mg Q30M PRN IV 11/30/24 21:30 Heparin Sodium (Porcine) 5,000 units Q12HR SC 12/01/24 10:00 12/03/24 09:09 5,000 UNITS Ergocalciferol 50,000 unit Q7D PO 12/01/24 11:15 12/01/24 12:26 50,000 UNIT Hydralazine HCl 25 mg Q8HR PO 12/02/24 08:15 12/03/24 05:57 25 MG Examination Patient lying in bed, in no acute distress General: Well-built, afebrile, palor, mucosae are moist Cardiovascular: Tachycardia but Regular S1 and S2. No murmurs, gallops or rubs. No JVD elevation. No pedal edema Respiratory: Bilateral crackles heard on auscultation, Abdomen: Soft, nontender, nondistended, normoactive bowel sounds, no rebound tenderness, no organomegaly, no masses Genitourinary: Deferred MSK/skin: Mobilizes 4 limbs. Skin is dry and warm Neurological: No motor, no sensitive deficits, normal speech. Pupils are isocoric and reactive. Psych/Mental Status: A/Ox3 laboratory and microbiology Laboratory Tests 12/03/24 13:00 12/02/24 04:20 Test 12/03/24 13:00 Range/Units Serum Glucose 121 H 74-106 mg/dL Problem List/Assessment/Plan Problem List/Assessment/Plan Problem List/Assessment/Plan-Echo 2D- EF 10%, severely dilated LV, severe tricuspid and mitral regurgitation. Patient was taken off oxygen. Patient breathing well in room air and also on ambulation. No desaturation of oxygen. Plan is to watch patient overnight if he desaturates or not. As per Cardiology patient is a poor candidate for left heart catheterization because of CKD which might worsen to ESRD on left heart catheterization. Possible discharge tomorrow. Acute on chronic decompensated systolic heart failure-EF 20%-NYHA class 3 Severe mitral regurgitation Acute hypoxic respiratory failure secondary to above NSTEMI, likely type 2 Hypertensive urgency Ischemic versus nonischemic cardiomyopathy Cardiology consulted-started hydralazine 25 mg b.i.d., isosorbide mononitrate 30 mg daily, Lasix 40 mg IV b.i.d. Echocardiogram completed, EF 10%, severely dilated LV, severe tricuspid and mitral regurgitation. -continue heparin 5000 units subcutaneously q.12 hours Lasix 40 mg IV b.i.d. Cardiac diet, fluid restrictions, strict I&Os BNP and troponin elevated. Increase hydralazine to Q 8 hourly -As per Cardiology patient is a poor candidate for left heart catheterization because of CKD which might worsened to ESRD on left heart catheterization Diabetes mellitus type 2-hemoglobin A1c 5.9 On ISS Temporary AFib -continue metoprolol as prescribed Acute kidney injury likely cardiorenal etiology Possible baseline Chronic kidney disease IIIb Nephrology consulted - continue diuresis Renal ultrasound completed, unremarkable Creatinine 2.36 on arrival, baseline 2.0 in 05/2023, On 12/03/2024 serum creatinine 2.22 Hypernatremia Obesity Lifestyle measures advised Heparin 5000 units b.i.d. for DVT prophylaxis Cardiac diet, renal diet Plan discussed with patient in which all questions have been answered Goals of care discussed with patient for more than 22 minutes, full code status Case discussed with Dr. Willis Plan discussed with: Patient Plan discussed with: Patient, Other (RN) Dietary Evaluation Review Comments: 1) Continue to promote optimal PO intake 2) F/u with cardiology 3) Collect HbA1c d/t elevated glucose 4) Continue plan of care Expected Outcomes/Goals: 1) appetite and labs to improve 2) f/u in 5 days Date of Service: Dec 03, 2024 Billing Provider: CARLOS WILLIS MD Common Visit Codes: [id number] INP/OBS CARE(HIGH) JESUS DENNIS RESIDENT Dec 03, 2024 14:10 CARLOS WILLIS MD Dec 03, 2024 17:40
--- NOTE | 2024-12-03 15:23 | DVHPN2 ---
Progress Note Date Seen: Dec 03, 2024 Medical Necessity Reason Pt with a Central, PICC or Fol: No Subjective Patient reports: No new complaints, Feels better Review of Systems: HEENT:Normal, CVS:Normal, RESPIRATORY:Normal, GI:Normal, :Normal, MSK:Normal, NEURO:Normal Objective vital signs Vital Sign Date Time Temp Pulse Resp B/P (MAP) Pulse Ox O2 Delivery O2 Flow Rate FiO2 12/03/24 14:05 127/78 12/03/24 13:03 98.1 103 19 98 98.1 12/03/24 08:00 Room Air* 0 21 Total Intake and Output 12/02/24 12/02/24 12/03/24 15:00 23:00 07:00 Intake Total 300 ml 900 ml 800 ml Balance 300 ml 900 ml 800 ml medications Current Medications Medications Dose Ordered Sig/Jinny Route Start Time Stop Time Status Last Admin Dose Admin Furosemide 40 mg BIDD IV 12/01/24 06:00 12/02/24 17:05 40 MG Isosorbide Mononitrate 30 mg DAILY PO 12/01/24 10:00 12/03/24 09:04 30 MG Acetaminophen 650 mg Q6HP PRN PO 11/30/24 21:30 Enoxaparin Sodium 40 mg DAILY SC 12/01/24 10:00 Cancel Nitroglycerin 0.4 mg Q5MINP PRN SL 11/30/24 21:30 Morphine Sulfate 2 mg Q30M PRN IV 11/30/24 21:30 Heparin Sodium (Porcine) 5,000 units Q12HR SC 12/01/24 10:00 12/03/24 09:09 5,000 UNITS Ergocalciferol 50,000 unit Q7D PO 12/01/24 11:15 12/01/24 12:26 50,000 UNIT Hydralazine HCl 25 mg Q8HR PO 12/02/24 08:15 12/03/24 14:05 25 MG Metoprolol Tartrate 25 mg BID PO 12/03/24 22:00 UNV Examination: GENERAL:Normal, HEENT:Normal, NECK:Normal, LUNGS:Normal, CVS:Normal, ABDOMEN:Normal, MSK:Abnormal, SKIN:Normal, NEURO:Normal, :Normal laboratory and microbiology Laboratory Tests 12/03/24 13:00 12/02/24 04:20 Test 12/03/24 13:00 Range/Units Serum Glucose 121 H 74-106 mg/dL Problem List/Assessment/Plan Problem List/Assessment/Plan Acute kidney injury likely cardiorenal etiology Possible baseline Chronic kidney disease IIIb Acute on chronic Congestive heart failure reduced ejection fraction exacerbation EF 10 End-stage cardiomyopathy Hypertensive emergency Recommendations Agree with diuretics continue as tolerated Blood pressure control Kidney ultrasound wnl Urine analysis looks normal Outpatient Acute kidney injury follow-up after discharge Plan discussed with: Patient, Spouse Dietary Evaluation Review Comments: 1) Continue to promote optimal PO intake 2) F/u with cardiology 3) Collect HbA1c d/t elevated glucose 4) Continue plan of care Expected Outcomes/Goals: 1) appetite and labs to improve 2) f/u in 5 days SYDNEY BALLARD MD Dec 03, 2024 15:23
[2024-12-03] MEDS: METOPROLOL TARTRATE 25 MG TAB PO ONE (15:49)
[2024-12-03] MEDS: METOPROLOL TARTRATE 25 MG TAB PO SCH (21:23)
[2024-12-04 01:00] VITALS: BP 125/93; PULSE 90; RESP 18; TEMP 97.6; O2SAT 97
[2024-12-04 05:00] VITALS: BP 126/93; PULSE 95; RESP 18; TEMP 97.4; O2SAT 90
[2024-12-04 06:23] LABS: Basophils # (auto) 0 10 ^3/uL (0-0.2); Eosinophils # (auto) 0.3 10 ^3/uL (0-0.8); Hemoglobin 18.1 g/dL (13.5-17.5); Mean Corpuscular Hemoglobin 28.2 pg (28.0-32.0); Mean Corpuscular Hgb Conc. 34.5 g/dL (32.0-36.0); Monocytes # (auto) 0.6 10 ^3/uL (0-1.3); Neutrophils # (auto) 1.8 10 ^3/uL (1.6-8.6); Platelet Count (auto) 208 10^3/uL (140-450)
[2024-12-04 06:24] LABS: Anion Gap 12 (5-15); Calcium 9.9 mg/dL (8.7-10.4); Carbon Dioxide 28 mmol/L (20-31); Chloride 101 mmol/L (98-107); Sodium 141 mmol/L (136-145)
[2024-12-04 06:27] LABS: Basophils % (auto) 0.5 % (0.0-2.0); Eosinophils % (auto) 6.1 % (0.0-7.0); Hematocrit 52.3 % (41.0-53.0); Lymphocytes # (auto) 1.4 10 ^3/uL (0.4-5.4); Mean Corpuscular Volume 81.8 fL (80.0-100.0); Monocytes % (auto) 14.8 % (0.0-12.0); Neutrophils % (auto) 44.6 % (37.0-80.0); Nucleated Red Blood Cells % 0.3 %; Red Cell Distribution Width 15.5 % (11.8-14.3); White Blood Cell 4.1 10^3/uL (4.4-10.8)
[2024-12-04 06:30] LABS: Glucose 84 mg/dL (74-106)
[2024-12-04 06:31] LABS: Magnesium 2.1 mg/dL (1.6-2.6)
[2024-12-04 06:34] LABS: Blood Urea Nitrogen 27 mg/dL (9-23); Potassium 3.4 mmol/L (3.5-5.1)
[2024-12-04 08:00] VITALS: PULSE 97
[2024-12-04 09:00] VITALS: BP 132/80; PULSE 94; RESP 18; TEMP 97.8; O2SAT 96
[2024-12-04] MEDS: POTASSIUM CHL 20 Meq TABLET PO ONE (10:08)
[2024-12-04 13:00] VITALS: BP 122/90; PULSE 91; RESP 18; TEMP 97.6; O2SAT 96
[2024-12-04] MEDS ORDERED: HYDR25TA87 PO (13:07)
[2024-12-04] MEDS ORDERED: METO25TA5 PO (13:07)
[2024-12-04] MEDS ORDERED: SPIR25TA PO (13:07)
--- NOTE | 2024-12-04 13:48 | DVHPNRES ---
Progress Note Date Seen: Dec 04, 2024 Resident Creating Document: JACOB GONSALEZ RESIDENT Medical Necessity Reason Pt with a Central, PICC or Fol: No Subjective Patient reports: No new complaints, Feels better Other Systems: Patient seen and examined by myself with the medicine resident today on rounds. I agree with his assessment and plan as in the patient chart Objective vital signs Vital Sign Date Time Temp Pulse Resp B/P (MAP) Pulse Ox O2 Delivery O2 Flow Rate FiO2 12/04/24 13:00 97.6 91 18 122/90 (101) 96 97.6 12/04/24 07:45 Room Air* 0 21 Total Intake and Output 12/03/24 12/03/24 12/04/24 15:00 23:00 07:00 Intake Total 300 ml 750 ml 240 ml Output Total 1150 ml Balance 300 ml -400 ml 240 ml medications Current Medications Medications Dose Ordered Sig/Jinny Route Start Time Stop Time Status Last Admin Dose Admin Furosemide 40 mg BIDD IV 12/01/24 06:00 12/04/24 05:21 40 MG Isosorbide Mononitrate 30 mg DAILY PO 12/01/24 10:00 12/04/24 10:09 30 MG Acetaminophen 650 mg Q6HP PRN PO 11/30/24 21:30 Enoxaparin Sodium 40 mg DAILY SC 12/01/24 10:00 Cancel Nitroglycerin 0.4 mg Q5MINP PRN SL 11/30/24 21:30 Morphine Sulfate 2 mg Q30M PRN IV 11/30/24 21:30 Heparin Sodium (Porcine) 5,000 units Q12HR SC 12/01/24 10:00 12/04/24 10:10 5,000 UNITS Ergocalciferol 50,000 unit Q7D PO 12/01/24 11:15 12/01/24 12:26 50,000 UNIT Hydralazine HCl 25 mg Q8HR PO 12/02/24 08:15 12/04/24 05:21 25 MG Metoprolol Tartrate 25 mg BID PO 12/03/24 22:00 12/04/24 10:10 25 MG Examination GENERAL:Normal, HEENT:Normal, NECK:Normal, LUNGS:crackels, CVS:Normal, ABDOMEN:Normal, MSK:Abnormal, SKIN:Normal, NEURO:Normal, :Normal laboratory and microbiology Laboratory Tests 12/04/24 04:35 Test 12/04/24 04:35 Range/Units Serum Glucose 84 74-106 mg/dL Labs and/or images reviewed: Labs reviewed by me, Image(s) reviewed by me Problem List/Assessment/Plan Problem List/Assessment/Plan Nephrology Consult/ Progress Note: Assessment: #Acute kidney injury likely cardiorenal etiology as per KIDGO criteria #Likely baseline Chronic kidney disease IIIb #Acute on chronic Congestive heart failure reduced ejection fraction exacerbation EF 10 #End-stage cardiomyopathy #Hypertensive emergency #Hypernatremia, resolved #Hypovitaminosis D Findings: #GFR, improving 42 #Cr. 2.36>2.26>2.23>2.22>1.93 #Urinalysis unremarkable. #I&O: [id number] #HD via jacqui catheter / fistula / tunneled catheter #Kidney Ultrasound: Renal ultrasound completed, unremarkable Plan: #Strict I&O and check Daily weight, continue diuretics, Fluid Restriction given HFrEF. #Avoid Nephrotoxics , hyper/hypo tension #Follow bmp closely. #Rest of the management as per primary team. Thank you for the opportunity to follow up on your patient. In case of any question feel free to reach out to the Nephrology team. Discussed with Nephrology attending Dr. Ennis. Plan discussed with: Patient, Other (priamry team ) Dietary Evaluation Review Comments: 1) Continue to promote optimal PO intake 2) F/u with cardiology 3) Collect HbA1c d/t elevated glucose 4) Continue plan of care Expected Outcomes/Goals: 1) appetite and labs to improve 2) f/u in 5 days JACOB GONSALEZ RESIDENT Dec 04, 2024 13:48 CECY ENNIS MD Dec 04, 2024 15:59
--- NOTE | 2024-12-04 15:18 | DVHDSRES ---
Discharge Summary Date of Admission Resident Creating Document: MERA LOJA RESIDENT Nov 30, 2024 at 21:20 Date of Discharge: Dec 04, 2024 Admitting Diagnosis Acute on chronic decompensated systolic heart failure Wounds: No wound was present Labs/Diagnostic Data: Laboratory Results Test 12/04/24 04:35 12/02/24 04:20 12/01/24 05:46 12/01/24 01:45 White Blood Count 4.1 10^3/uL (4.4-10.8) Red Blood Count 6.40 10^6/uL (4.5-5.90) Hemoglobin 18.1 g/dL (13.5-17.5) Hematocrit 52.3 % (41.0-53.0) Mean Corpuscular Volume 81.8 fL (80.0-100.0) Mean Corpuscular Hemoglobin 28.2 pg (28.0-32.0) Mean Corpuscular Hemoglobin Concent 34.5 g/dL (32.0-36.0) Red Cell Distribution Width 15.5 % (11.8-14.3) Platelet Count 208 10^3/uL (140-450) Mean Platelet Volume 9.0 fL (6.9-10.8) Neutrophils (%) (Auto) 44.6 % (37.0-80.0) Lymphocytes (%) (Auto) 34.0 % (10.0-50.0) Monocytes (%) (Auto) 14.8 % (0.0-12.0) Eosinophils (%) (Auto) 6.1 % (0.0-7.0) Basophils (%) (Auto) 0.5 % (0.0-2.0) Neutrophils # (Auto) 1.8 10 ^3/uL (1.6-8.6) Lymphocytes # (Auto) 1.4 10 ^3/uL (0.4-5.4) Monocytes # (Auto) 0.6 10 ^3/uL (0-1.3) Eosinophils # (Auto) 0.3 10 ^3/uL (0-0.8) Basophils # (Auto) 0 10 ^3/uL (0-0.2) Nucleated Red Blood Cells 0.3 % Sodium Level 141 mmol/L (136-145) Potassium Level 3.4 mmol/L (3.5-5.1) Chloride Level 101 mmol/L (98-107) Carbon Dioxide Level 28 mmol/L (20-31) Anion Gap 12 (5-15) Blood Urea Nitrogen 27 mg/dL (9-23) Creatinine 1.93 mg/dL (0.700-1.30) Glomerular Filtration Rate Calc 42 mL/min (>90) BUN/Creatinine Ratio 14.0 (10.0-20.0) Serum Glucose 84 mg/dL (74-106) Calcium Level 9.9 mg/dL (8.7-10.4) Magnesium Level 2.1 mg/dL (1.6-2.6) Total Bilirubin 1.3 mg/dL (0.2-1.0) Aspartate Amino Transferase (AST) 23 U/L (13-40) Alanine Aminotransferase (ALT) 48 U/L (7-40) Alkaline Phosphatase 40 U/L (46-116) Total Protein 5.9 g/dL (5.7-8.2) Albumin 3.7 g/dL (3.2-4.8) Vitamin B12 Level 951 pg/mL (211-911) Vitamin D 25-Hydroxy 25.6 ng/mL (30.0-100) Thyroid Stimulating Hormone (TSH) 0.97 uIU/mL (0.55-4.78) Urine Color Straw (Yellow) Urine Clarity Clear (Clear) Urine pH 6.5 (5.0-9.0) Urine Specific [place] 1.006 (1.001-1.035) Urine Protein Negative (Negative) Urine Ketones Negative (Negative) Urine Blood Negative /uL (Negative) Urine Nitrite Negative (Negative) Urine Bilirubin Negative (Negative) Urine Urobilinogen Normal mg/dL (Negative) Urine Leukocyte Esterase Negative /uL (Negative) Urine RBC <1 /hpf (0 - 3) Urine Microscopic WBC 1 /HPF (0-3) Urine Squamous Epithelial Cells None seen /hpf (<5) Urine Bacteria None seen /hpf (None Seen) Urine Glucose Normal mg/dL (Normal) Urine Opiates Screen Neg (NEGATIVE) Urine Fentanyl Screen Neg (NEGATIVE) Urine Barbiturates Screen Neg (NEGATIVE) Urine Phencyclidine Screen Neg (NEGATIVE) Urine Amphetamines Screen Neg (NEGATIVE) Urine Benzodiazepines Screen Neg (NEGATIVE) Urine Cocaine Screen Neg (NEGATIVE) Urine Cannabinoids Screen Neg (NEGATIVE) Test 11/30/24 15:52 11/30/24 13:04 D-Dimer, Quantitative < 0.19 mg/L FEU (0.0-0.49) Troponin I High Sensitivity 106 ng/L (</=54) Hemoglobin A1c 5.9 % A1C (<5.7) B-Type Natriuretic Peptide 2859.79 pg/mL (0-100) Other Laboratory Tests 12/04/24 04:35 Brief Hx & Hospital Course: Mr. Pandya is a 49-year-old male patient with past medical history of congestive heart failure diagnosed June 16, 2023, hypertension, diabetes mellitus type, presented to the ER with a chief complaint of shortness of breath on exertion for the past 4 weeks. Patient reports that a month back his whole family got sick with runny nose and flu-like symptoms, following which he developed dyspnea but denies orthopnea or paroxysmal nocturnal dyspnea. Uses 2 pillows for a long time to sleep. Patient also developed a cough which was productive, now the cough is resolved. Denies chest pain/diaphoresis/fevers/chills/palpitations. 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 He was discharged on isosorbide mononitrate, metoprolol, Jardiance and hydralazine. Hospital course: Patient was presented with acute hypoxic respiratory failure likely due to acute on chronic decompensated systolic heart failure possible NSTEMI type 2 secondary to supply versus demand ischemia. Echo revealed ejection fraction 10%, severe dilated LV cavity, end-stage cardiomyopathy and severe mitral and tricuspid regurgitation. patient was treated with Lasix 40 mg IV b.i.d. Cardiology was in board and recommended metoprolol tartrate 25 mg p.o. b.i.d., hydralazine 25 mg Q 8 hours and continue isosorbide mononitrate 30 mg daily and also mentioned patient is a poor candidate for left heart catheterization because of CKD which might worsen to ESRD on left heart catheterization. Nephrology was also in board and mentioned STANSILAV on possible CKD likely due to cardiorenal etiology recommended continue diuresis, avoid nephrotoxic medication and outpatient follow up with Nephrology after discharge. morning during rounds patient mentioned relief of shortness of breath and on physical exam patient noted to be euvolemic. Discharge plan was discussed with the patient and all questions were answered. Patient is being discharged to home. Discharge Plan: Disposition: Home Medications: Hydralazine 25 mg t.i.d., metoprolol tartrate 25 mg b.i.d., spironolactone 25 mg daily and continue aspirin 81 mg daily, Jardiance 10 mg daily, Lasix 40 mg daily and isosorbide mononitrate 30 mg daily. Follow up : DC clinic in 1 week Outpatient cardiology and Nephrology in 1-2 weeks Consults/Reason for consult Cardiology and Nephrology were consulted Operations or Procedures EXAM: Two-dimensional and M-mode echocardiogram with Doppler and color Doppler. Blood Pressure: 153/115 mmHg INDICATION Eval cardiac function RISK FACTORS Height: 70, Weight: 211 DIMENSIONS LVDd 7.1 (3.8-5.7cm) LA (2D) 5.5 (1.9-4.0cm) Aortic Root 4.1 (2.0- 3.7cm) LVDs 6.5 (2.5-4.0cm) LA (MM) (1.9-4.0cm) Aortic Cusp Exc 1.9 (1.5- 2.0cm) EF (%) 20.0 (55-70%) Rt. Atrium 5.1 (1.9-4.0cm) Asc. Aorta cm IVSd 1.4 (0.7-1.1cm) RV (D) (1.8-2.4cm) PWd 1.5 (0.7-1.1cm) Mitral Valve Mitral Mitral Stenosis E wave 1.46m/s MV Mean GR. 3mmHg A wave m/s MV Peak GR. 200mmHg E/A ratio 0.0 2D MVA cm2 DECEL Time ms PRESS 1/2 Time 410ms IVRT ms Dop MVA 0.54cm2 Aortic Valve Aortic Valve Aortic Stenosis V1 0.86m/s AO Mean GR. 2mmHg V2 1.01m/s AO Peak GR. 4mmHg LVOT Diameter 2.5 (1.8-2.4cm) Doppler KATE 4.18cm2 Pulmonic Valve V2 0.61m/s Tricuspid Valve TR Velocity 2.65m/s RVSP 35mmHg Conclusion lvef 10% severe dilated LV cavity size end stage cardioimyopathy RV enlarged mild with mild dysfunction sevre mitral regurg severe tricuspid regurg biatrial enlargement XY CHEST TWO VIEWS ROUTINE CLINICAL HISTORY: sob COMPARISON: None TECHNIQUE: Frontal and lateral view of the chest was obtained FINDINGS: Lines and Tubes: None Lungs: No focal consolidation. Pleura: No effusion. No pneumothorax. Cardiomediastinal contours: Cardiomegaly. Bones: No acute osseous abnormality. IMPRESSION: No acute cardiopulmonary disease. EXAM: US Retroperitoneal Limited, Renal CLINICAL INDICATION: STANISLAV TECHNIQUE: Real-time limited ultrasound of the retroperitoneum with image documentation. COMPARISON: None FINDINGS: RIGHT KIDNEY: Right kidney measures up to 8.0 cm. No stones. No hydronephrosis. LEFT KIDNEY: Left kidney measures up to 9.3 cm. No stones. No hydronephrosis. BLADDER: Urinary bladder appears normal for its size of distention. OTHER FINDINGS: . IMPRESSION: Unremarkable exam. Condition at Discharge: Guarded Final Diagnosis/Problems List Acute on chronic decompensated systolic heart failure-EF 10%-NYHA class 3 Severe mitral regurgitation Acute hypoxic respiratory failure secondary to above NSTEMI, likely type 2 Hypertensive urgency Ischemic versus nonischemic end stage cardiomyopathy Diabetes mellitus type 2-hemoglobin A1c 5.9 Acute kidney injury likely cardiorenal etiology Possible baseline Chronic kidney disease IIIb Discharge Disposition: Home Discharge Instruct/Medications Diet: Cardiac 2g Na,low cholest, Renal Activity: No Restrictions, As Tolerated Follow Up/Referral: Follow up with DC clinic in 1 week Follow up with outpatient Cardiology and Nephrology in 1-2 weeks Medications: As per EMR Discharge Statement: "Patient was advised to return to the ER or call 911 if any headaches, dizziness, shortness of breath, chest pain, abdominal pain, bleeding, fevers, or worsening of medical condition. Patient was counseled about treatment plan, medications, possible side effects, patientverbalized understanding. All questions were answered to the best of my ability. This discharge took greater then 30 minutes in planning, reviewing documentation, counseling the patient, and discussing with other team members." ASSESSMENT ASSESSMENT Assessment Acute on chronic decompensated systolic heart failure-EF 10%-NYHA class 3 Severe mitral regurgitation Acute hypoxic respiratory failure secondary to above NSTEMI, likely type 2 Hypertensive urgency Ischemic versus nonischemic end stage cardiomyopathy Diabetes mellitus type 2-hemoglobin A1c 5.9 Acute kidney injury likely cardiorenal etiology Possible baseline Chronic kidney disease IIIb MERA LOJA RESIDENT Dec 04, 2024 15:18
[2024-12-04 15:21] VITALS: BP 122/90; PULSE 91; RESP 18; TEMP 97.6; O2SAT 96
== END 2024-12-04 16:02 | disposition home or self-care (01) | DRG 194 ==
LOC: ER 12:08 → OVERFLOW 21:20 → TELE-WESTW 12-01 15:55
PROVIDERS: ADMIT Student in an Organized Health Care Education/Training Program; ATTEND Student in an Organized Health Care Education/Training Program
DX: I13.0 Hypertensive heart and chronic kidney disease with heart failure and stage 1 through stage 4 chronic kidney disease, or unspecified chronic kidney disease (principal); J96.01 Acute respiratory failure with hypoxia; R65.11 Systemic inflammatory response syndrome (SIRS) of non-infectious origin with acute organ dysfunction; I21.A1 Myocardial infarction type 2; N17.9 Acute kidney failure, unspecified; N18.32 Chronic kidney disease, stage 3b; E87.0 Hyperosmolality and hypernatremia; E66.9 Obesity, unspecified; I08.1 Rheumatic disorders of both mitral and tricuspid valves; E11.22 Type 2 diabetes mellitus with diabetic chronic kidney disease; I49.3 Ventricular premature depolarization; I16.1 Hypertensive emergency; E54 Ascorbic acid deficiency; I50.43 Acute on chronic combined systolic (congestive) and diastolic (congestive) heart failure; I42.8 Other cardiomyopathies; I25.5 Ischemic cardiomyopathy; Z91.199 Patient's noncompliance with other medical treatment and regimen due to unspecified reason; Z79.84 Long term (current) use of oral hypoglycemic drugs; Z79.891 Long term (current) use of opiate analgesic; Z79.82 Long term (current) use of aspirin; Z79.899 Other long term (current) drug therapy; Z68.31 Body mass index [BMI] 31.0-31.9, adult
CPT/HCPCS: 36415; 71046; 76775; 80048; 80053; 80307; 81001; 82306; 82607; 83036; 83735; 83880; 84443; 84484; 85025; 85379; 93005; 93306; 96372; 96374; 99291; G0378